=== PATIENT | male | born 1940 | race Caucasian/White ===

== ENCOUNTER 2017-02-19 07:24 | Inpatient (IN) ==
[2017-02-19] MEDS ORDERED: Ipratropium/Albuterol Neb 3 ML IH ONE (07:30)
--- NOTE | 2017-02-19 07:37 | Emergency Department Note ---
Disposition Clinical Impression: Bronchitis, Cardiac enzymes elevated, Renal insufficiency Disposition: Admitted As Inpatient Condition: Fair Forms: ED Satisfaction Letter Time of Disposition: 08:40 SOB HPI - General Chief Complaint: ED Shortness of Breath/Dyspnea Stated Complaint: Cough Time Seen by Provider: 02/19/17 07:30 Source: patient Mode of arrival: ambulatory Limitations: no limitations Nursing Notes Reviewed: Yes Vital Signs Reviewed: Yes - History of Present Illness 76-year-old male who comes in with cough congestion for the last several days. Was started on amoxicillin by his primary care provider. H symptoms seem to be getting worse. He has no history of lung problems. Denies chest pain. Pt Subjective Complaint: shortness of breath, cough Onset (ago): day(s) Context: recent illness Severity: moderate Improves with: nothing Worsens with: coughing Associated symptoms: Reports: fever, cough. Denies: chest pain Treatment prior to arrival: other (Oxacillin) Sputum production: Yes - Related Data Home Medications Medication Instructions Recorded Confirmed Acitretin [Soriatane] 25 mg PO 09/08/16 Amitriptyline [Elavil] 50 mg PO HS 09/08/16 01/19/17 Aspirin [Aspirin] 81 mg PO DAILY 09/08/16 01/19/17 Betamethasone/Propylene Glyc 30 ml TP ONCE 09/08/16 01/19/17 [Betamethasone Dp Aug 0.05% Lot] Clopidogrel [Plavix] 75 mg PO DAILY 09/08/16 01/19/17 Donepezil HCl [Aricept] 10 mg PO DAILY 09/08/16 01/19/17 Fenofibrate Nanocrystallized 145 mg PO TID 09/08/16 01/19/17 [Tricor] Insulin Regular U-500 [HumuLIN R 60 mm SQ TID 09/08/16 01/19/17 U-500] Loratadine [Claritin] 10 mg PO DAILY 09/08/16 01/19/17 Metoprolol [Lopressor] 50 mg PO BID 09/08/16 01/19/17 Mometasone Furoate [Nasonex] 17 gm NS BID 09/08/16 01/19/17 Ramipril [Altace] 10 mg PO BID 09/08/16 01/19/17 Tamsulosin [Flomax] 0.4 mg PO BID 09/08/16 01/19/17 hydroCHLOROthiazide 25 mg PO DAILY 09/08/16 01/19/17 [Hydrochlorothiazide] Multivitamin [Multivitamins] 1 each PO 01/19/17 Allergies Allergy/AdvReac Type Severity Reaction Status Date / Time codeine AdvReac Vomiting Verified 02/19/17 07:29 Icuzceb-Lyc-Iwh Reductase AdvReac Muscle Pain Verified 02/19/17 07:29 Inhibitor [Statins] Past Medical History - Past Medical History Medical history: Reports: arthritis, diabetes, hyperlipidemia, hypertension, valvular heart disease Surgical history: Reports: herniorrhaphy, thyroidectomy Psychiatric history: Reports: depression - Social History Smoking Status: Never smoker Smokeless Tobacco Status: No Alcohol use: Reports: none Drug use: Reports: none Physical Exam - General Limitations: no limitations General appearance: alert, in no apparent distress Course - Reevaluation(s) Reevaluation #1: Patient with cough and congestion. Chest x-ray show some opacities that were considered to be possibly edema however the BNP is normal. Patient does have a deep red treatment with some antibiotics he does have a slight elevation in his lactate is vital signs are normal with a normal heart rate and normal blood pressure we'll give him a liter fluid and repeat his lactate. Time: 08:39 - Consultations Consultation #1: Discussed with , admit. Time: 08:40 Vital Signs Temperature 99.0 F 02/19/17 07:25 Pulse Rate 98 02/19/17 07:25 Respiratory Rate 18 02/19/17 07:25 Blood Pressure 147/79 02/19/17 07:25 O2 Sat by Pulse Oximetry 95 02/19/17 07:25 Temperature 99.0 F 02/19/17 07:25 Pulse Rate 92 02/19/17 07:41 Respiratory Rate 20 02/19/17 07:41 Blood Pressure 166/84 02/19/17 07:41 O2 Sat by Pulse Oximetry 97 02/19/17 07:41 Oxygen Delivery Oxygen Delivery Room Air Shortness of Breath/Dyspnea - Lab Data Lab results reviewed: Yes I reviewed the patient's lab results. Result diagrams: 02/19/17 07:51 02/19/17 07:51 Lab Results 02/19/17 02/19/17 02/19/17 Range/Units 07:51 07:51 07:51 WBC 14.0 H (4.3-11.1) K/mcL RBC 4.36 (4.19-5.50) M/mcL Hgb 14.6 (12.9-16.9) g/dL Hct 41.6 (37.5-50.1) % MCV 95.4 (83.0-100.0) fL MCH 33.5 H (28.0-33.3) pg MCHC 35.1 (31.6-35.5) g/dL RDW 13.2 (11.5-14.5) % Plt Count 259 (140-400) K/mcL MPV 9.6 (9.4-12.4) fL Immature Gran % 0.4 (0-4) % Seg Neutrophils % 43.1 % Lymphocytes % 46.6 % Monocytes % 8.4 % Eosinophils % 1.0 % Basophils % 0.5 % Neutrophils # 6.0 (1.6-8.9) K/mcL Lymphocytes # 6.5 H (0.6-4.6) K/mcL Monocytes # 1.2 (0.0-1.3) K/mcL Eosinophils # 0.1 (0.0-0.6) K/mcL Basophils # 0.1 (0.0-0.2) K/mcL Sodium 136 (136-145) mEq/L Potassium 4.5 (3.5-4.5) mEq/L Chloride 100 (98-109) mEq/L Carbon Dioxide 22 (19-29) mEq/L BUN 23 (8-26) mg/dL Creatinine 1.54 H (0.72-1.25) mg/dL Est GFR ( Amer) 53 L (> 60) Est GFR (Non-Af Amer) 44 L (> 60) BUN/Creatinine Ratio 15 (6-26) Glucose 242 H (70-99) mg/dL Calculated Osmolality 294 (280-300) Lactic Acid 2.7 H (0.5-2.2) mmol/L Calcium 9.6 (8.6-10.8) mg/dL Troponin I (0-0.03) ng/mL B-Natriuretic Peptide (0-100) pg/mL 02/19/17 02/19/17 Range/Units 07:51 07:51 WBC (4.3-11.1) K/mcL RBC (4.19-5.50) M/mcL Hgb (12.9-16.9) g/dL Hct (37.5-50.1) % MCV (83.0-100.0) fL MCH (28.0-33.3) pg MCHC (31.6-35.5) g/dL RDW (11.5-14.5) % Plt Count (140-400) K/mcL MPV (9.4-12.4) fL Immature Gran % (0-4) % Seg Neutrophils % % Lymphocytes % % Monocytes % % Eosinophils % % Basophils % % Neutrophils # (1.6-8.9) K/mcL Lymphocytes # (0.6-4.6) K/mcL Monocytes # (0.0-1.3) K/mcL Eosinophils # (0.0-0.6) K/mcL Basophils # (0.0-0.2) K/mcL Sodium (136-145) mEq/L Potassium (3.5-4.5) mEq/L Chloride (98-109) mEq/L Carbon Dioxide (19-29) mEq/L BUN (8-26) mg/dL Creatinine (0.72-1.25) mg/dL Est GFR ( Amer) (> 60) Est GFR (Non-Af Amer) (> 60) BUN/Creatinine Ratio (6-26) Glucose (70-99) mg/dL Calculated Osmolality (280-300) Lactic Acid (0.5-2.2) mmol/L Calcium (8.6-10.8) mg/dL Troponin I 0.05 H* (0-0.03) ng/mL B-Natriuretic Peptide 24 (0-100) pg/mL - Radiology Data Radiology results reviewed: Yes I reviewed the patient's radiology results. Chest X-Ray 02/19/17 07:30 IMPRESSION: Slightly increased interstitial opacities, left greater than right, which may reflect mild edema. D/ / Rosie Bingham MD / Rosie Bingham MD Interpreting Provider: Rosie Bingham MD - EKG Data EKG attestation: Yes I reviewed and interpreted this EKG. EKG shows normal: Reports: sinus rhythm Rate: Reports: normal Gamaliel/QRS: Reports: left axis deviation, IVCD Heart block present: Reports: 1st Degree When compared to previous EKG there are: no significant changes (02/25/2014) Interpretation: Reports: no acute changes
[2017-02-19 08:05] LABS: Basophils # 0.1 K/mcL (0.0-0.2); Basophils % 0.5 %; Eosinophils # 0.1 K/mcL (0.0-0.6); Hematocrit 41.6 % (37.5-50.1); Hemoglobin 14.6 g/dL (12.9-16.9); Immature Granulocytes % 0.4 % (0-4); Lymphocytes # 6.5 K/mcL (0.6-4.6); Lymphocytes % 46.6 %; Mean Corpuscular HGB Conc 35.1 g/dL (31.6-35.5); Mean Corpuscular Hemoglobin 33.5 pg (28.0-33.3); Mean Corpuscular Volume 95.4 fL (83.0-100.0); Mean Platelet Volume 9.6 fL (9.4-12.4); Monocytes # 1.2 K/mcL (0.0-1.3); Monocytes % 8.4 %; Platelet Count 259 K/mcL (140-400); Red Blood Count 4.36 M/mcL (4.19-5.50); Red Cell Distribution Width 13.2 % (11.5-14.5); Segmented Neutrophils % 43.1 %
[2017-02-19 08:11] LABS: Calcium 9.6 mg/dL (8.6-10.8); Potassium 4.5 mEq/L (3.5-4.5)
[2017-02-19] MEDS ORDERED: Aspirin 81 MG TAB.CHEW PO STA (08:56)
[2017-02-19] MEDS ORDERED: Piperacillin/Tazobactam 3.375 GM in 0.9 % Sodium Chloride Mini Bag 100 ML IVPB ONE (10:00)
--- NOTE | 2017-02-19 11:41 | Internal Med History&Physical ---
Date of Encounter: 02/20/17 Time of Encounter: 11:35 Assessment and Plan (1) Bronchitis Current visit: Yes Status: Acute This is a possibility of early COPD. This is likely COPD exacerbation. Patient is a elevated white count, change in color of the sputum, or tachycardia , and respiratory rate is more than 18/m. Plan: Intravenous antibiotics, Intravenous steroids, Inhaled bronchodilators. Close monitoring of the respiratory status. (2) Cardiac enzymes elevated Current visit: Yes Status: Acute Patient's troponin is elevated. This can be multifactorial. At this point I would like to monitor troponin very closely. We will do serial troponins. Please note that patient's creatinine is also elevated. (3) Hypertension Current visit: Yes Status: Acute Patient's latest blood pressure 140/83. We will monitor patient's blood pressure very closely. Qualifiers: Hypertension type: unspecified Qualified Code(s): I10 - Essential (primary ) hypertension (4) Renal insufficiency Current visit: Yes Status: Acute Patient denies efficiency maybe due to the prerenal failure. We will be give patient gentle hydration. Please note that patient's lactic acid is also elevated. (5) Diabetes mellitus Current visit: Yes Status: Acute scsi DM management as per insulin order set. 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 if Aortic area is in critical stenotic evel then will call cardiology. Qualifiers: Cardiac valve disease etiology: etiology unspecified Qualified Code(s): I35.0 - Nonrheumatic aortic (valve) stenosis Internal Medicine - H&P: HPI Chief complaint: Shortness of breath Admitted From: Emergency Dept Plans for Post Hospital Care: Home History of present illness: Primary care:Practitioner Willow Singer Brief past medical history: Diabetes, hypertension, hyperlipidemia, valvular heart disease (aortic stenosis: Wall area 1.25 cm), COPD, arthritis, History of present medical illness: Patient was experiencing worsening shortness of breath along with cough and expectoration. Patient noted that the color of the sputum has changed. Patient also noted that the frequency of cough is getting worse. Patient noted that it was very difficult for him to lay down flat. Patient denies chest pain, nausea, vomiting, abdominal pain, dysuria, diarrhea and dizziness. For his worsening shortness of breath and cough patient decided to come to emergency room for further evaluation. Workup in the emergency room: Patient was evaluated in the emergency room. Basic labs were drawn. Neurological examination of the chest was suggestive of a infiltrative pattern. The left lower lobe of the lung has what infiltrates compared to the right. Patient has a elevated white blood cell count and patient has a possibility of acute kidney injury. It was noted that patient's troponin was elevated. Reason for admission: Likely COPD exacerbation with demand ischemia and a possibility of acute kidney injury. Patient has elevated lactic acid Family history: Noncontributory Past Med Surg Social Fam HX - Past Medical History Medical history: arthritis, diabetes, hyperlipidemia, hypertension, valvular heart disease Psychiatric history: depression - Past Surgical History Surgical History: herniorrhaphy, thyroidectomy - Social History Smoking Status: Never smoker Smokeless Tobacco Status: No Alcohol use: none Drug use: none - Family History Mother Hx Family Cardiac Disorders: Yes Hx Family Respiratory Disorders: No Hx Family Cancer: Yes (breast cancer) Hx Family GI Disorders: No Hx Family Endocrine Disorder: Yes Hx Family Neuromuscular Disorders: No Hx Family Neurologic Disorders: No Hx Family HEENT Disorders: No Hx Family Autoimmune Disorders: No Internal Medicine - H&P: Meds Acitretin [Soriatane] 25 mg PO DAILY 09/08/16 [History] Aspirin [Aspirin] 81 mg PO DAILY 09/08/16 [History] Betamethasone/Propylene Glyc [Betamethasone Dp Aug 0.05% Lot] 1 appl TP DAILY [History] Clopidogrel [Plavix] 75 mg PO DAILY 09/08/16 [History] Donepezil HCl [Aricept] 10 mg PO DAILY 09/08/16 [History] Fenofibrate Nanocrystallized [Tricor] 145 mg PO DAILY 09/08/16 [History] Insulin Regular U-500 [HumuLIN R U-500] 80 mm SQ TID 09/08/16 [History] Loratadine [Claritin] 10 mg PO DAILY 09/08/16 [History] Metoprolol [Lopressor] 50 mg PO BID 09/08/16 [History] Mometasone Furoate [Nasonex] 17 gm NS BID 09/08/16 [History] Ramipril [Altace] 10 mg PO BID 09/08/16 [History] Tamsulosin [Flomax] 0.4 mg PO BID 09/08/16 [History] hydroCHLOROthiazide [Hydrochlorothiazide] 25 mg PO DAILY 09/08/16 [History] Multivitamin [Multivitamins] 1 tab PO DAILY 01/19/17 [History] Amoxicillin 875 mg PO BID 02/19/17 [History] Furosemide [Lasix] 40 mg PO DAILY 02/19/17 [History] HYDROcodone/Acet 5/325 mg [Bagley 5-325 mg] 1 tab PO BID PRN 02/19/17 [History] Levothyroxine Sodium [Levoxyl] 200 mcg PO DAILY 02/19/17 [History] Meclizine HCl [Verticalm] 25 mg PO DAILY PRN 02/19/17 [History] Montelukast [Singulair] 10 mg PO DAILY 02/19/17 [History] 3 Allergy/AdvReac Type Severity Reaction Status Date / Time codeine AdvReac Vomiting Verified 02/19/17 07:29 Pxwoaat-Msg-Wbd Reductase AdvReac Muscle Pain Verified 02/19/17 07:29 Inhibitor [Statins] All Systems PM: A 10-system review of systems was performed and is negative for pertinent findings except as documented above in the HPI. - Constitutional Constitutional: no chills, no fever(s), no night sweats - EENT Eyes: no change in vision, no discharge, no pain, no photophobia Ears: no ear discharge, no ear pain, no tinnitus Nose, mouth and throat: no dysphagia, no nasal discharge, no neck pain, no sore throat - Cardiovascular Cardiovascular ROS IM: diaphoresis, dyspnea, lightheadedness, palpitations, no chest pain, no syncope - Respiratory Respiratory: cough, dyspnea, wheezing, excessive phlegm production, change in phlegm color - Gastrointestinal Gastrointestinal: no abdominal pain, no diarrhea, no hematemesis, no hematochezia, no melena, no nausea, no vomiting - Musculoskeletal Musculoskeletal ROS IM: no numbness, no tingling - Integumentary Integumentary IM: no rash, no unusual bruising - Neurological Neurological ROS: no confusion, no convulsions, no focal weakness, no numbness, no tingling, no tremor(s) - Hematologic/Lymphatic Hematologic/Lymphatic: no easy bruising - Constitutional Vitals: Temp Pulse Resp BP Pulse Ox 99.2 F 79 18 140/83 94 02/19/17 10:02 02/19/17 10:02 02/19/17 10:02 02/19/17 10:02 02/19/17 10:02 General appearance: Present: A&O X 3, pleasant, no acute distress, answers questions appropriately - Head Head exam: Present: atraumatic, normocephalic - Eye Eye exam: Present: PERRL, conjuntiva pink, sclera anicteric Pupils: Present: PERRL - Neck Neck exam general surgery: Present: supple, trachea midline. Absent: lymphadenopathy - Respiratory Respiratory exam: Present: CTAB. Absent: accessory muscle use, rales, rhonchi, wheezes - Cardiovascular Cardiovascular exam: Present: RRR, +S1, +S2. Absent: diastolic murmur, gallop, rubs, systolic murmur - GI/Abdominal GI/Abdominal exam: Present: normal bowel sounds, soft, no peritoneal signs. Absent: distended, tenderness - Extremities Exam Extremities exam: Present: warm, radial pulses palpable and symmetrical. Absent : calf tenderness, cyanotic, pedal edema - Neurological Exam Neurological exam: Present: CN II-XII intact, oriented X3, no focal deficits. Absent: pronater drift, facial droop, speech deficit - Skin Skin exam: Present: dry, intact Internal Med - H&P Results - Labs CBC & Chem 7: 02/20/17 00:56 02/20/17 00:56
[2017-02-19] MEDS ORDERED: Naloxone 0.4 MG/ML INJ IVP PRN (12:20)
[2017-02-19] MEDS: Azithromycin 500 MG in D5% in Water 250 ML IVPB SCH (16:05)
[2017-02-19] MEDS: *HR* HYDROcodone/Acet 5/325 mg TABLET PO PRN (16:47)
[2017-02-19] MEDS: cefTRIAXone 1,000 MG in Water for inj. (sterile) 10 ML IVP SCH (17:30)
[2017-02-19] MEDS: Lisinopril 20 MG TABLET PO SCH (21:06)
[2017-02-19] MEDS ORDERED: Dextrose Gel 15 GM PO PRN ×2 (21:34)
[2017-02-19] MEDS ORDERED: *HR* Dextrose 50 % in Water (Syg) 50 ML SYRINGE IVP PRN (21:34)
[2017-02-19] MEDS ORDERED: D5% in Water 1,000 ML IVC PRN (21:34)
[2017-02-19] MEDS: Insulin LISPRO 300 UNITS/3 ML VIAL SQ SCH (22:24)
[2017-02-20 01:25] LABS: Basophils # 0.1 K/mcL (0.0-0.2); Basophils % 0.6 %; Eosinophils # 0.2 K/mcL (0.0-0.6); Eosinophils % 1.9 %; Hematocrit 41.7 % (37.5-50.1); Hemoglobin 14.4 g/dL (12.9-16.9); Immature Granulocytes % 0.4 % (0-4); Lymphocytes # 5.2 K/mcL (0.6-4.6); Lymphocytes % 47.4 %; Mean Corpuscular HGB Conc 34.5 g/dL (31.6-35.5); Mean Corpuscular Volume 95.6 fL (83.0-100.0); Mean Platelet Volume 9.9 fL (9.4-12.4); Monocytes # 1.3 K/mcL (0.0-1.3); Monocytes % 11.8 %; Neutrophils # 4.1 K/mcL (1.6-8.9); Platelet Count 238 K/mcL (140-400); Red Blood Count 4.36 M/mcL (4.19-5.50); Red Cell Distribution Width 13.2 % (11.5-14.5); Segmented Neutrophils % 37.9 %
[2017-02-20 01:35] LABS: Albumin 3.6 g/dL (3.5-5.0); Albumin/Globulin Ratio 1.1 (1.1-2.2); Bilirubin,Total 0.4 mg/dL (0.2-1.2); Calcium 9.8 mg/dL (8.6-10.8); Magnesium 1.9 mg/dL (1.6-2.6); Phosphorous 3.4 mg/dL (2.3-4.7); Potassium 4.4 mEq/L (3.5-4.5)
[2017-02-20 01:36] LABS: Chol/HDL Ratio 8.5 (0-4.9); Globulin 3.4 g/dL (2.4-3.5)
[2017-02-20 01:58] LABS: INR 1.1; Prothrombin Time 12.4 Seconds (9.4-12.1)
[2017-02-20 02:00] LABS: Activated Partial Thrombo Time 27.9 Seconds (26.0-36.0)
[2017-02-20] MEDS ORDERED: Benzonatate 100 MG CAPSULE PO PRN (02:18)
[2017-02-20] MEDS: Lisinopril 20 MG TABLET PO SCH (08:55)
[2017-02-20] MEDS: Fenofibrate 54 MG TABLET PO SCH (08:55)
[2017-02-20] MEDS: Loratadine 10 MG TABLET PO SCH (08:55)
[2017-02-20] MEDS: Aspirin 81 MG TAB.CHEW PO SCH (08:56)
[2017-02-20] MEDS: Insulin LISPRO 300 UNITS/3 ML VIAL SQ SCH ×4 (08:57→22:08)
[2017-02-20] MEDS ORDERED: hydroCHLOROthiazide 25 MG TABLET PO SCH (09:00)
[2017-02-20] MEDS ORDERED: Furosemide 40 MG TABLET PO SCH (09:00)
[2017-02-20] MEDS ORDERED: ACITRETIN 25 MG PO SCH (09:00)
[2017-02-20] MEDS: *HR* HYDROcodone/Acet 5/325 mg TABLET PO PRN ×2 (09:34→21:58)
[2017-02-20] MEDS: Azithromycin 500 MG in D5% in Water 250 ML IVPB SCH (14:58)
[2017-02-20] MEDS: Ipratropium/Albuterol Neb 3 ML IH SCH ×2 (15:42→20:21)
[2017-02-20] MEDS: Acetylcysteine 10% 2 ML INHSOL IH SCH ×2 (15:43→20:23)
--- NOTE | 2017-02-20 18:05 | Internal Med Progress Note ---
Date of Encounter: 02/20/17 Time of Encounter: 18:04 - Assessment and plan (1) Bronchitis Current Visit: Yes Status: Acute Assessment and plan: Cough could be caused by lower respiratory tract infection, post nasal drip, GERD, others. He has no signs/symptoms of asthma/COPD. He does not seem fluid overloaded though he does have mild edema on chest x-ray - will treat with rocephin/azithromycin - Mucomyst, Duo Neb - Respiratory cultures: sputum, urine antigens, procalcitonin - CT chest without contrast (CKD). (2) Dyspnea on exertion Current Visit: Yes Status: Acute Assessment and plan: May be related to bronchitis as patient suggests, however this could be cardiac in nature as he does have severe seen on echo and moderate LV diastolic dysfunction. He insists that BARBOSA is from infection, not cardiac. He has been tried on amoxicillin as outpatient. He has no tobacco history, he has no history of asthma, denies any cardiac history though he does have documented valvular heart disease. - Treat for lower respiratory tract infection; Azithro/Rocephin - CT chest - I will suggest to patient that we consult Cardiology in AM. If he has not seen a [employer] Lead Developer in the past for , he should be seen inpatient or outpatient. (3) Stage 3 chronic kidney disease Current Visit: Yes Status: Acute Assessment and plan: Reviewing patient's prior labs, he is at baseline currently. (4) Severe aortic stenosis Current Visit: Yes Status: Acute Assessment and plan: Could be the cause of progressive BARBOSA that he complains of. I will suggest to patient that we consult Cardiology in AM if his symptoms do not improve with respiratory therapies. Patient denies any cardiac history but he has documented history of valvular heart disease and most likely has seen a [employer] Lead Developer. Will attempt to obtain records. (5) Cardiac enzymes elevated Current Visit: Yes Status: Acute Assessment and plan: Likely due to CKD as patient's troponin levels appear to fluctuate between 0.04- 0.05. He does not complain of any chest pain. (6) Diabetes mellitus Current Visit: Yes Status: Acute Qualifiers: Diabetes mellitus type: type 2 Diabetes mellitus complication status: with unspecified complications Diabetes mellitus fdc insulin use: unspecified fdc insulin use status Qualified Code(s): E11.8 - Type 2 diabetes mellitus with unspecified complications (7) Hypertension Current Visit: Yes Status: Acute Assessment and plan: BP control should not be aggressive given his , should keep BP close to baseline. Qualifiers: Hypertension type: unspecified Qualified Code(s): I10 - Essential (primary ) hypertension (8) Hyperlipidemia Current Visit: Yes Status: Acute Assessment and plan: On Tricor. Has documented allergy to statins. Qualifiers: Hyperlipidemia type: mixed hyperlipidemia Qualified Code(s): E78.2 - Mixed hyperlipidemia - Subjective Interval history: States he is still having coughing fits with difficulty breathing with fits of cough. Noted orthopnea in the ED but denied this to me. He denies chest pain, n/v, diaphoresis, fevers/chills, PND, LE edema. Admits dyspnea has been progressing gradually. Was tried on Amaxicillin without resolve. . - Constitutional Vitals: Temp Pulse Resp BP Pulse Ox 98.4 F 66 24 117/67 98 02/20/17 15:27 02/20/17 15:27 02/20/17 15:43 02/20/17 15:27 02/20/17 15:43 General appearance: Present: A&O X 3, pleasant, no acute distress, answers questions appropriately Exam: - Constitutional Constitutional: no chills, no fever(s), no night sweats - EENT Eyes: no change in vision, no discharge, no pain, no photophobia Ears: no ear discharge, no ear pain, no tinnitus Nose, mouth and throat: no dysphagia, no nasal discharge, no neck pain, no sore throat - Cardiovascular Cardiovascular ROS IM: diaphoresis, dyspnea, lightheadedness, palpitations, no chest pain, no syncope - Respiratory Respiratory: cough, dyspnea, wheezing, excessive phlegm production, change in phlegm color - Gastrointestinal Gastrointestinal: no abdominal pain, no diarrhea, no hematemesis, no hematochezia, no melena, no nausea, no vomiting - Musculoskeletal Musculoskeletal ROS IM: no numbness, no tingling - Integumentary Integumentary IM: no rash, no unusual bruising - Neurological Neurological ROS: no confusion, no convulsions, no focal weakness, no numbness, no tingling, no tremor(s) - Hematologic/Lymphatic Hematologic/Lymphatic: no easy bruising Internal Medicine: Result - Labs CBC & Chem 7: 02/20/17 00:56 02/20/17 00:56 Labs: Short CBC 02/20/17 Range/Units 00:56 WBC 10.9 (4.3-11.1) K/mcL Hgb 14.4 (12.9-16.9) g/dL Hct 41.7 (37.5-50.1) % Plt Count 238 (140-400) K/mcL Neutrophils # 4.1 (1.6-8.9) K/mcL BMP 02/20/17 00:56 Sodium 136 Potassium 4.4 Chloride 100 Carbon Dioxide 27 BUN 29 H Creatinine 1.68 H Glucose 215 H Calcium 9.8 Cardiac Enzymes 02/19/17 02/20/17 Range/Units 19:03 00:56 Troponin I 0.05 H* 0.04 H* (0-0.03) ng/mL Liver Function 02/20/17 Range/Units 00:56 Total Bilirubin 0.4 (0.2-1.2) mg/dL AST 34 (5-34) Units/L ALT 36 (0-55) Units/L Alkaline Phosphatase 38 (38-126) Units/L Albumin 3.6 (3.5-5.0) g/dL - ABG Interpretation ABG results: PT/INR, D-dimer PT 12.4 Seconds (9.4-12.1) H 02/20/17 00:56 - Impressions Impressions Echocardiogram 02/19/17 12:25 Impressions: Technically adequate exam. Normal sinus rhythm. LVEF 65%. Moderate left ventricular diastolic dysfunction. Mild concentric left ventricular hypertrophy. Severe aortic stenosis. Peak and mean gradients are 367 mmHg, respectively. Trace aortic regurgitation. Mildly dilated left atrium. Trileaflet aortic valve. Trace tricuspid regurgitation. Left Ventricular Wall Motion: Rest Echo Findings The mid inferior lateral wall was akinetic. The mid anterior lateral and basal anterior lateral riggs were not visualized. All other wall segments showed normal motion. Findings: Study Quality * Technically adequate exam. ECG Findings * Normal sinus rhythm. Left Ventricle * Mild concentric left ventricular hypertrophy. * Moderate left ventricular diastolic dysfunction. * There is no LV thrombus. * LVEF 65%. Right Ventricle * Normal right ventricular structure and function. Left Atrium * Mildly dilated left atrium. Right Atrium * Normal right atrial size. Interatrial Septum * No evidence of PFO by color Doppler. Aortic Valve * Trileaflet aortic valve. * Mildly calcified aortic valve leaflets. * Mildly sclerotic aortic valve leaflets. * Mildly thickened aortic valve leaflets. * Trace aortic regurgitation. * Severe aortic stenosis. * Peak and mean gradients are 367 mmHg, respectively. Mitral Valve * Normal mitral valve structure and function. Tricuspid Valve * Normal tricuspid valve structure. * Trace tricuspid regurgitation. Pulmonic Valve * Pulmonic valve is not well visualized. Aorta * Normally sized aortic root. Pericardium * The pericardium appears normal. Chest CT 02/20/17 13:07 IMPRESSION: 1. No acute process in the chest. 2. Dense coronary artery atherosclerotic vascular calcifications. D/ / Dennis Lpoez MD / Dennis Lopez MD Interpreting Provider: Dennis Lopez MD Consult Discharge Plan - Plan Referrals: Willow Singer CNP [Primary Care Provider] -
[2017-02-20] MEDS: cefTRIAXone 1,000 MG in Water for inj. (sterile) 10 ML IVP SCH (18:57)
[2017-02-21] MEDS: Ipratropium/Albuterol Neb 3 ML IH SCH ×3 (00:42→07:23)
[2017-02-21] MEDS: Acetylcysteine 10% 2 ML INHSOL IH SCH ×3 (00:43→07:24)
[2017-02-21 04:26] LABS: Basophils # 0.1 K/mcL (0.0-0.2); Basophils % 0.5 %; Eosinophils # 0.3 K/mcL (0.0-0.6); Eosinophils % 2.1 %; Hematocrit 40.7 % (37.5-50.1); Hemoglobin 13.9 g/dL (12.9-16.9); Immature Granulocytes % 0.3 % (0-4); Lymphocytes # 7.4 K/mcL (0.6-4.6); Lymphocytes % 61.4 %; Mean Corpuscular HGB Conc 34.2 g/dL (31.6-35.5); Mean Corpuscular Hemoglobin 33.2 pg (28.0-33.3); Mean Corpuscular Volume 97.1 fL (83.0-100.0); Monocytes % 8.4 %; Neutrophils # 3.3 K/mcL (1.6-8.9); Platelet Count 254 K/mcL (140-400); Red Blood Count 4.19 M/mcL (4.19-5.50); Red Cell Distribution Width 13.2 % (11.5-14.5); Segmented Neutrophils % 27.3 %
[2017-02-21 05:26] LABS: Potassium 4.4 mEq/L (3.5-4.5)
[2017-02-21 05:27] LABS: Calcium 9.6 mg/dL (8.6-10.8)
[2017-02-21] MEDS: Saline Nasal Spray 44 ML BOTTLE NS PRN ×3 (07:05→14:24)
--- NOTE | 2017-02-21 08:55 | Internal Med Progress Note ---
Date of Encounter: 02/21/17 Time of Encounter: 08:50 - Assessment and plan (1) Bronchitis Current Visit: Yes Status: Acute Assessment and plan: The treating for bronchitis with Rocephin and azithromycin, was on amoxicillin as outpatient without resolve. Chronic cough not likely related to JAG inhibitor if patient has been on this medication for a while. Patient denies any heartburn symptoms, though it might be worth it to have a trial of H2 nu. Could also possibly be postnasal drip, as he does complain of rhinorrhea and occasionally sinus congestion. We will try Pepcid and Flonase. We will discontinue medications that have not been effective. Does not have any wheezing, nor history of any asthma/COPD. But will consider corticosteroid therapy if he does develop symptoms. He denies chest pain, n/v, diaphoresis, fevers/chills, PND, LE edema. Admits dyspnea has been progressing gradually. Was tried on Amaxicillin without resolve. (2) Dyspnea on exertion Current Visit: Yes Status: Acute Assessment and plan: It could be related to bronchitis as patient suggests, however this could be cardiac in nature as he does have severe seen on echo and moderate LV diastolic dysfunction, as seen on echocardiogram 2 days ago. He states his last cardiology follow-up was 4 months ago. Wells Score suggests low likelihood of PE. (3) Mxniu-pz-wwesfgc kidney injury Current Visit: Yes Status: Acute Assessment and plan: states he sees Dr. Smith in the past for declining renal function. Patient home medications include Lasix, hydrochlorothiazide, lisinopril. We will hold these medications today. Might need judicious IV fluid hydration. We will grab renal ultrasound, FEURea, urinalysis with micro, and consult Nephrology. Qualifiers: Acute renal failure type: unspecified Chronic kidney disease stage: stage 3 (moderate) Qualified Code(s): N17.9 - Acute kidney failure, unspecified; N18.3 - Chronic kidney disease, stage 3 (moderate); N18.3 - Chronic kidney disease, stage 3 (moderate) (4) Stage 3 chronic kidney disease Current Visit: Yes Status: Acute Assessment and plan: Was at baseline yesterday, usually runs 1.4-1.6. Today was elevated, will get nephrology consult. (5) Severe aortic stenosis Current Visit: Yes Status: Acute Assessment and plan: Could be the cause of progressive BARBOSA that he complains of. Cardiology has been consulted. (6) Hypertension Current Visit: Yes Status: Acute Assessment and plan: BP control should not be aggressive given his , should keep BP close to baseline. Currently hypotensive, but we are holding lisinopril and hydrochlorothiazide. He may need hydralazine as a when necessary. Appreciate cardiology input on blood pressure medication given current status. Qualifiers: Hypertension type: unspecified Qualified Code(s): I10 - Essential (primary ) hypertension (7) Cardiac enzymes elevated Current Visit: Yes Status: Acute Assessment and plan: Likely due to CKD as patient's troponin levels appear to fluctuate between 0.04- 0.05. He does not complain of any chest pain. (8) Diabetes mellitus Current Visit: Yes Status: Acute Assessment and plan: We will add Levemir 10 units as basal insulin. He may need more requirements as he is on U500 at home. Continue diabetic diet and sliding scale Qualifiers: Diabetes mellitus type: type 2 Diabetes mellitus complication status: with unspecified complications Diabetes mellitus jail insulin use: unspecified termite treater insulin use status Qualified Code(s): E11.8 - Type 2 diabetes mellitus with unspecified complications (9) Hyperlipidemia Current Visit: Yes Status: Acute Assessment and plan: On Tricor. Has documented allergy to statins. Qualifiers: Hyperlipidemia type: mixed hyperlipidemia Qualified Code(s): E78.2 - Mixed hyperlipidemia - Subjective Interval history: Thing episodes did not improve with DuoNeb's, or Mucomyst. Denies chest pain, fevers/chills, n/v. - Constitutional Vitals: Temp Pulse Resp BP Pulse Ox 97.9 F 59 16 82/50 93 02/21/17 07:18 02/21/17 07:18 02/21/17 07:24 02/21/17 07:18 02/21/17 07:24 General appearance: Present: A&O X 3, pleasant, no acute distress, answers questions appropriately Internal Medicine: Result - Labs CBC & Chem 7: 02/21/17 03:19 02/21/17 04:55 Labs: Short CBC 02/21/17 Range/Units 03:19 WBC 12.0 H (4.3-11.1) K/mcL Hgb 13.9 (12.9-16.9) g/dL Hct 40.7 (37.5-50.1) % Plt Count 254 (140-400) K/mcL Neutrophils # 3.3 (1.6-8.9) K/mcL BMP 02/21/17 04:55 Sodium 135 L Potassium 4.4 Chloride 101 Carbon Dioxide 24 BUN 48 H D Creatinine 2.29 H Glucose 241 H Calcium 9.6 - ABG Interpretation ABG results: PT/INR, D-dimer PT 12.4 Seconds (9.4-12.1) H 02/20/17 00:56 - Impressions Impressions Chest CT 02/20/17 13:07 IMPRESSION: 1. No acute process in the chest. 2. Dense coronary artery atherosclerotic vascular calcifications. D/ / Dennis Lopez MD / Dennis Lopez MD Interpreting Provider: Dennis Lopez MD - VTE Documentation of Mechanical Device: Graduated compression elastic hosiery Consult Discharge Plan - Plan Referrals: Willow Singer FINGER COBBLER [Primary Care Provider] -
[2017-02-21] MEDS ORDERED: 0.9 % Sodium Chloride 500 ML IVC SCH ×2 (09:15→11:23)
[2017-02-21] MEDS: Insulin LISPRO 300 UNITS/3 ML VIAL SQ SCH ×4 (09:29→22:31)
[2017-02-21] MEDS: Fenofibrate 54 MG TABLET PO SCH (09:30)
[2017-02-21] MEDS: Loratadine 10 MG TABLET PO SCH (09:30)
[2017-02-21] MEDS: Aspirin 81 MG TAB.CHEW PO SCH (09:30)
[2017-02-21] MEDS: *HR* HYDROcodone/Acet 5/325 mg TABLET PO PRN ×2 (09:39→22:53)
--- NOTE | 2017-02-21 11:26 | Nephrology Consult Note ---
Date of Encounter: 02/21/17 Time of Encounter: 11:24 Assessment and Plan (1) Bronchitis Current Visit: Yes Status: Acute (2) Diabetes mellitus Current Visit: Yes Status: Acute Qualifiers: Diabetes mellitus type: type 2 Diabetes mellitus complication status: with unspecified complications Diabetes mellitus terminal operator insulin use: unspecified terminal operator insulin use status Qualified Code(s): E11.8 - Type 2 diabetes mellitus with unspecified complications (3) Hypertension Current Visit: Yes Status: Acute Qualifiers: Hypertension type: unspecified Qualified Code(s): I10 - Essential (primary ) hypertension (4) Severe aortic stenosis Current Visit: Yes Status: Acute (5) Stage 3 chronic kidney disease Current Visit: Yes Status: Acute (6) Zdbim-sx-hpnbktv kidney injury Current Visit: Yes Status: Acute Qualifiers: Acute renal failure type: unspecified Chronic kidney disease stage: stage 3 (moderate) Qualified Code(s): N17.9 - Acute kidney failure, unspecified; N18.3 - Chronic kidney disease, stage 3 (moderate); N18.3 - Chronic kidney disease, stage 3 (moderate) History of Present Illness - Reason for Consult Consult date: 02/21/17 Acute Kidney Injury - Chief Complaint ADRIANA on CKD Past Med Surg Social Fam HX - Past Medical History Medical history: arthritis, diabetes, hyperlipidemia, hypertension, valvular heart disease Psychiatric history: depression - Past Surgical History Surgical History: herniorrhaphy, thyroidectomy - Social History Smoking Status: Never smoker Smokeless Tobacco Status: No Alcohol use: none Drug use: none - Family History Mother Hx Family Cardiac Disorders: Yes Hx Family Respiratory Disorders: No Hx Family Cancer: Yes (breast cancer) Hx Family GI Disorders: No Hx Family Endocrine Disorder: Yes Hx Family Neuromuscular Disorders: No Hx Family Neurologic Disorders: No Hx Family HEENT Disorders: No Hx Family Autoimmune Disorders: No Medications and Allergies Acitretin [Soriatane] 25 mg PO DAILY 09/08/16 [History] Aspirin [Aspirin] 81 mg PO DAILY 09/08/16 [History] Betamethasone/Propylene Glyc [Betamethasone Dp Aug 0.05% Lot] 1 appl TP DAILY [History] Clopidogrel [Plavix] 75 mg PO DAILY 09/08/16 [History] Donepezil HCl [Aricept] 10 mg PO DAILY 09/08/16 [History] Fenofibrate Nanocrystallized [Tricor] 145 mg PO DAILY 09/08/16 [History] Insulin Regular U-500 [HumuLIN R U-500] 80 mm SQ TID 09/08/16 [History] Loratadine [Claritin] 10 mg PO DAILY 09/08/16 [History] Metoprolol [Lopressor] 50 mg PO BID 09/08/16 [History] Mometasone Furoate [Nasonex] 17 gm NS BID 09/08/16 [History] Ramipril [Altace] 10 mg PO BID 09/08/16 [History] Tamsulosin [Flomax] 0.4 mg PO BID 09/08/16 [History] hydroCHLOROthiazide [Hydrochlorothiazide] 25 mg PO DAILY 09/08/16 [History] Multivitamin [Multivitamins] 1 tab PO DAILY 01/19/17 [History] Amoxicillin 875 mg PO BID 02/19/17 [History] Furosemide [Lasix] 40 mg PO DAILY 02/19/17 [History] HYDROcodone/Acet 5/325 mg [[place] 5-325 mg] 1 tab PO BID PRN 02/19/17 [History] Levothyroxine Sodium [Levoxyl] 200 mcg PO DAILY 02/19/17 [History] Meclizine HCl [Verticalm] 25 mg PO DAILY PRN 02/19/17 [History] Montelukast [Singulair] 10 mg PO DAILY 02/19/17 [History] 3 Allergy/AdvReac Type Severity Reaction Status Date / Time codeine AdvReac Vomiting Verified 02/19/17 07:29 Qaptxtc-Tjx-Oqi Reductase AdvReac Muscle Pain Verified 02/19/17 07:29 Inhibitor [Statins] Exam - Vital Signs Vital signs: Initial Vital Signs Temp Pulse Resp BP Pulse Ox 99.0 F 98 18 147/79 95 02/19/17 07:25 02/19/17 07:25 02/19/17 07:25 02/19/17 07:25 02/19/17 07:25 Vital Signs - Last 8 Hours Temp Pulse Resp BP Pulse Ox 02/21/17 07:24 16 93 02/21/17 07:18 97.9 F 59 16 82/50 93 02/21/17 04:46 16 94 02/21/17 04:02 97.6 F 59 18 104/67 94 Intake and Output 02/20/17 02/21/17 02/21/17 23:59 07:59 15:59 Intake Total 450 / 450 Output Total 400 / 400 Balance 50 / 50 Intake: Oral 450 / 450 Output: Urine 400 / 400 Other: Weight 108.363 kg Blood Glucose* 307 277 Patient Weight 02/21/17 23:59 Weight 108.363 kg - General Appearance General appearance: well-developed, well-nourished EENT: ATNC Neck: supple Additional Comments: Rare basilar crackles that improve with repeat inspiration. Gastrointestinal: normoactive bowel sounds Integumentary: no rash, warm and dry Neurologic: alert and oriented x3 Musculoskeletal: no cyanosis Psychiatric: mood/affect appropriate Results - Lab Results 02/21/17 03:19 02/21/17 04:55 Most recent lab results Calcium 9.6 mg/dL (8.6-10.8) 02/21/17 04:55 Phosphorus 3.5 mg/dL (2.3-4.7) 02/20/17 10:43 Magnesium 1.9 mg/dL (1.6-2.6) 02/20/17 00:56 Consult Discharge Plan - Plan Referrals: Willow Singer CNP [Primary Care Provider] - (web request sent on 02/21/17)
--- NOTE | 2017-02-21 11:32 | Electrocardiograph Report ---
[place] [id number] Test Date: 2017-02-19 Pat Name: Olayinka Garrido Department: [id number] Room: 2A13 Gender: M Audio Visual Engineer: AM : 1940 Requested By: Dileep Jurado Order Number: [id number] Reading MD: Cecil Hart Measurements Intervals [place] Rate: 94 P: 8 MS: 219 QRS: -42 QRSD: 121 T: 112 QT: 380 QTc: 432 Interpretive Statements SINUS RHYTHM WITH FIRST DEGREE AV BLOCK MARKED LEFT AXIS DEVIATION LEFT VENTRICULAR HYPERTROPHY AND ST-T CHANGE POSSIBLE ANTEROSEPTAL MYOCARDIAL INFARCTION Electronically Signed On 02-21-2017 11:31:07 EST by Cecil Hart
[2017-02-21] MEDS: Azithromycin 500 MG in D5% in Water 250 ML IVPB SCH (12:16)
--- NOTE | 2017-02-21 13:47 | Cardiology Consult Note ---
<SophyDonaldo pretty Nathalie - Last Filed: 02/21/17 15:17> Date of Encounter: 02/21/17 Time of Encounter: 13:42 Assessment and Plan (1) Severe aortic stenosis Current Visit: Yes Status: Acute Previously known moderate , now progressed to severe. MG 35mmgHg, Peak gradient 54mmHg, valve area 0.86cm2, mean velocity 2.78 m/sec, peak velocity 3.67 m/sec. EF remains preserved. Pt admits to worsening dyspnea, but most bothersome symptom is cough over the past week--suspect secondary to bronchitis and not his . EKG with reciprocal LVH changes. LHC 02/25/14: successful PTCA/IRVIN to mid to distal LAD d/t severe ISR. Pt denies chest pain. Given severe , repeat ischemic eval will be warranted, but is not urgent. Pt currently has ADRIANA on CKD stage III, creatinine 2.29. Do no recommend LHC currently given risk of contrast induced nephropathy. Recommend outpt follow-up and once renal function is back to baseline, consider outpt diagnostic LHC then referral to valve replacement. Pt agrees to plan. Pt denies syncope. I will discuss all the above with Dr. Beckwith and make changes to plan accordingly. (2) Elevated troponin Current Visit: Yes Status: Acute Troponins 0.05, 0.04, 0.05, 0.04--flat and adynamic in setting of bronchitis and ADRIANA on CKD. Borderline. Nondiagnostic for ACS, secondary to demand ischemia. EF preserved on echo. Severe as above. (3) CAD (coronary artery disease) Current Visit: Yes Status: Acute LHC 02/25/14: successful PTCA/IRVIN to mid to distal LAD d/t severe ISR. Intolerant to statins. Continue ASA, Plavix, BB. Qualifiers: Coronary Disease-Associated Artery/Lesion type: [place] artery [place] vs. transplanted heart: [place] heart Associated angina: without angina Qualified Code(s): I25.10 - Atherosclerotic heart disease of [place] coronary artery without angina pectoris Discussion w patient/family: The assessment and plan as outlined above was discussed with the patient and/or family members who expressed understanding and agreement. All questions were answered. Thank you for involving us in the care of your patient. Please call with any questions. I will discuss all the above with Dr. Beckwith and make changes as necessary. History of Present Illness Consult date: 02/21/17 Requesting physician: Puneet Byers Consult reason: Severe Chief complaint: dyspnea, cough History of present illness: Mr. Garrido is a 76 year old male with PMH significant for CAD s/p PCI, HTN, CKD- 3, DMII, and JESSICA. He is unable to tolerate CPAP d/t deviated septum. Pt presented to ED due to experiencing worsening shortness of breath along with cough and expectoration. Patient noted that the color of the sputum has changed. He denies chest pain. Pt is being treated for bronchitis. Found to have borderline troponins--0.04, 0.05, 0.04, 0.05 in setting of ADRIANA on CKD. Creatinine today 2.29. Echo obtained. EF preserved, moderate LVDD, but found to have progression of , now severe (previously moderate). MG 35mmgHg, Peak gradient 54mmHg, valve area 0.86cm2, mean velocity 2.78 m/sec, peak velocity 3.67 m/sec. Prior CV testing: TTE 07/07/16: LVEF 55%, mild LVDD, normal RV size and function, moderate (PV 2.7 m/s, MG=16 mmHg, DI 0.32, BALDEMAR 1.25 cm2), mild TR, no PH, normal wall motion BCU 07/07/16: bilateral carotids arteries have minimal plaque throughout LHC 02/25/14: successful PTCA/IRVIN to mid to distal LAD d/t severe ISR TTE 01/31/14: LVEF 60%, mild LVDD, calcified AV without Past Med Surg Social Fam HX - Past Medical History Medical history: arthritis, coronary artery disease, diabetes, hyperlipidemia, hypertension, valvular heart disease Psychiatric history: depression - Past Surgical History Surgical History: angioplasty/stent, herniorrhaphy, thyroidectomy - Social History Smoking Status: Never smoker Smokeless Tobacco Status: No Alcohol use: none Drug use: none - Family History Mother Hx Family Cardiac Disorders: Yes Hx Family Respiratory Disorders: No Hx Family Cancer: Yes (breast cancer) Hx Family GI Disorders: No Hx Family Endocrine Disorder: Yes Hx Family Neuromuscular Disorders: No Hx Family Neurologic Disorders: No Hx Family HEENT Disorders: No Hx Family Autoimmune Disorders: No Medications and Allergies Acitretin [Soriatane] 25 mg PO DAILY 09/08/16 [History] Aspirin [Aspirin] 81 mg PO DAILY 09/08/16 [History] Betamethasone/Propylene Glyc [Betamethasone Dp Aug 0.05% Lot] 1 appl TP DAILY [History] Clopidogrel [Plavix] 75 mg PO DAILY 09/08/16 [History] Donepezil HCl [Aricept] 10 mg PO DAILY 09/08/16 [History] Fenofibrate Nanocrystallized [Tricor] 145 mg PO DAILY 09/08/16 [History] Insulin Regular U-500 [HumuLIN R U-500] 80 mm SQ TID 09/08/16 [History] Loratadine [Claritin] 10 mg PO DAILY 09/08/16 [History] Metoprolol [Lopressor] 50 mg PO BID 09/08/16 [History] Mometasone Furoate [Nasonex] 17 gm NS BID 09/08/16 [History] Ramipril [Altace] 10 mg PO BID 09/08/16 [History] Tamsulosin [Flomax] 0.4 mg PO BID 09/08/16 [History] hydroCHLOROthiazide [Hydrochlorothiazide] 25 mg PO DAILY 09/08/16 [History] Multivitamin [Multivitamins] 1 tab PO DAILY 01/19/17 [History] Amoxicillin 875 mg PO BID 02/19/17 [History] Furosemide [Lasix] 40 mg PO DAILY 02/19/17 [History] HYDROcodone/Acet 5/325 mg [[place] 5-325 mg] 1 tab PO BID PRN 02/19/17 [History] Levothyroxine Sodium [Levoxyl] 200 mcg PO DAILY 02/19/17 [History] Meclizine HCl [Verticalm] 25 mg PO DAILY PRN 02/19/17 [History] Montelukast [Singulair] 10 mg PO DAILY 02/19/17 [History] 3 Allergy/AdvReac Type Severity Reaction Status Date / Time codeine AdvReac Vomiting Verified 02/19/17 07:29 Zhwsthr-Cka-Age Reductase AdvReac Muscle Pain Verified 02/19/17 07:29 Inhibitor [Statins] All Systems Review: A 10-system review of systems was performed and is negative for pertinent findings except as documented above in the HPI. - Cardiovascular Cardiovascular: as per HPI, dyspnea at rest, dyspnea on exertion, orthopnea - Respiratory Respiratory: cough, dyspnea Physical Examination Vital Signs, Last 4 Hours Temp Pulse Resp BP Pulse Ox 02/21/17 11:00 97.7 F 69 16 114/68 94 Vital Signs Temp Pulse Resp BP Pulse Ox 02/21/17 11:00 97.7 F 69 16 114/68 94 02/21/17 07:24 16 93 02/21/17 07:18 97.9 F 59 16 82/50 93 02/21/17 04:46 16 94 02/21/17 04:02 97.6 F 59 18 104/67 94 02/21/17 00:43 16 93 02/20/17 23:14 98.9 F 64 16 121/77 93 02/20/17 20:21 16 93 02/20/17 20:00 98.0 F 66 16 127/73 91 02/20/17 15:43 24 98 02/20/17 15:27 98.4 F 66 18 117/67 92 Intake and Output 02/20/17 02/21/17 02/21/17 23:59 07:59 15:59 Intake Total 450 / 450 0 / 0 Output Total 400 / 400 0 / 0 Balance 50 / 50 0 / 0 Intake: IV Fluids 0 / 0 0.9 % Sodium Chloride 500 ML @ 0 / 0 50 mls/hr IVC .Q10H [facility] Rx#: [id number] Oral 450 / 450 0 / 0 Output: Urine 400 / 400 0 / 0 Other: Weight 108.363 kg Blood Glucose* 307 289 Patient Weight 02/21/17 23:59 Weight 108.363 kg General: Conversant, No Apparent Distress HEENT: Atraumatic, Normocephaly, Mucus Membranes Moist Neck: No JVD, Normal carotid pulses Cardiac: Reg Rate and Rhythm, Normal S1 and S2, Other (2/6 RASHMI noted) Lungs: Other (diminished) Neuro: Alert and responsive, No focal deficits noted Abdomen: Soft, Non-Tender Skin: No rashes noted on visualized skin Musculoskeletal: No Chest Wall Tenderness Extremities: No Clubbing, No Cyanosis, No Edema, Normal Pulses Results 02/21/17 03:19 02/21/17 04:55 Lab Results 02/21/17 02/21/17 03:19 04:55 WBC 12.0 H Hgb 13.9 Hct 40.7 Plt Count 254 Sodium 135 L Potassium 4.4 Chloride 101 Carbon Dioxide 24 BUN 48 H D Creatinine 2.29 H Glucose 241 H Calcium 9.6 Short CBC 02/21/17 Range/Units 03:19 WBC 12.0 H (4.3-11.1) K/mcL Hgb 13.9 (12.9-16.9) g/dL Hct 40.7 (37.5-50.1) % Plt Count 254 (140-400) K/mcL Neutrophils # 3.3 (1.6-8.9) K/mcL BMP 02/21/17 Range/Units 04:55 Sodium 135 L (136-145) mEq/L Potassium 4.4 (3.5-4.5) mEq/L Chloride 101 (98-109) mEq/L Carbon Dioxide 24 (19-29) mEq/L BUN 48 H D (8-26) mg/dL Creatinine 2.29 H (0.72-1.25) mg/dL Glucose 241 H (70-99) mg/dL Calcium 9.6 (8.6-10.8) mg/dL Active Medications Hydrocodone Bitart/Acetaminophen ([place] 5-325 Mg) 1 tab PO BID PRN PRN Reason: Pain Stop: 08/21/17 12:23 Last Admin: 02/21/17 09:39 Dose: 1 tab Aspirin (Aspirin) 81 mg PO DAILY BERYL Stop: 08/22/17 09:01 Last Admin: 02/21/17 09:30 Dose: 81 mg Clopidogrel Bisulfate (Plavix) 75 mg PO DAILY BERYL Stop: 08/22/17 09:01 Last Admin: 02/21/17 09:30 Dose: 75 mg Dextrose/Water (Dextrose 50% (Syg)) 25 ml IVP AD PRN PRN Reason: Hypoglycemia Stop: 08/21/17 21:35 Donepezil HCl (Aricept) 10 mg PO DAILY BERYL Stop: 08/22/17 09:01 Last Admin: 02/21/17 09:30 Dose: 10 mg Fenofibrate (Tricor) 162 mg PO DAILY BERYL Stop: 08/22/17 09:01 Last Admin: 02/21/17 09:30 Dose: 162 mg Glucagon (Glucagen) 1 mg IM ONCE PRN PRN Reason: Hypoglycemia Stop: 08/21/17 21:35 Glucose (Gluctose) 15 gm PO ONCE PRN PRN Reason: Hypoglycemia Stop: 08/21/17 21:35 Glucose (Gluctose) 30 gm PO ONCE PRN PRN Reason: Hypoglycemia Stop: 08/21/17 21:35 Guaifenesin (Robitussin/Dm) 10 ml PO Q6HR PRN PRN Reason: Cough Stop: 08/23/17 12:39 Last Admin: 02/21/17 14:23 Dose: 10 ml Heparin Sodium (Porcine) (Heparin) 5,000 unit SQ Q12HCO [facility] Stop: 08/23/17 18:01 Azithromycin 500 mg/ Dextrose 250 mls @ 252 mls/hr IVPB Q24H [facility] Stop: 08/21/17 13:01 Last Admin: 02/21/17 12:16 Dose: 250 mls/hr Ceftriaxone Sodium 1,000 mg/ (Sterile Water) 10 mls @ 300 mls/hr IVP Q24H [facility] Stop: 08/21/17 15:54 Last Admin: 02/20/17 18:57 Dose: 300 mls/hr Dextrose (Dextrose 5%) 1,000 mls @ 100 mls/hr IVC .Q10H PRN PRN Reason: HYPOGLYCEMIA Stop: 08/21/17 21:35 Sodium Chloride (0.9 % Sodium Chloride) 500 mls @ 125 mls/hr IVC .Q4H [facility] Stop: 02/21/17 15:19 Last Admin: 02/21/17 12:17 Dose: 125 mls/hr Insulin Detemir (Levemir) 10 unit SQ HS [facility] Stop: 08/23/17 21:01 Insulin Human Lispro (Humalog) 0 units SQ HS [facility] PRN Reason: Protocol Stop: 08/21/17 21:46 Last Admin: 02/20/17 22:08 Dose: 6 units Insulin Human Lispro (Humalog) 0 units SQ TIDAC [facility] PRN Reason: Protocol Stop: 08/22/17 07:31 Last Admin: 02/21/17 12:17 Dose: 10 units Levothyroxine Sodium (Synthroid) 200 mcg PO 0630 [facility] Stop: 08/22/17 06:31 Last Admin: 02/21/17 06:28 Dose: 200 mcg Loratadine (Claritin) 10 mg PO DAILY [facility] PRN Reason: Protocol Stop: 08/22/17 09:01 Last Admin: 02/21/17 09:30 Dose: 10 mg Meclizine HCl (Antivert) 25 mg PO DAILY PRN PRN Reason: Vertigo Metoprolol Tartrate (Lopressor) 50 mg PO BID BERYL Stop: 08/21/17 21:01 Naloxone HCl (Narcan) 0.4 mg IVP Q2MIN PRN PRN Reason: Opioid Reversal Stop: 08/21/17 12:21 Sodium Chloride ([place] Nasal [place]) 2 spray NS Q2H PRN PRN Reason: Congestion Stop: 08/23/17 06:24 Last Admin: 02/21/17 14:24 Dose: 2 spray Tamsulosin HCl (Flomax) 0.4 mg PO BID BERYL PRN Reason: Protocol Stop: 08/21/17 21:01 Last Admin: 02/21/17 09:30 Dose: 0.4 mg - Imaging and Cardiology Echo: report reviewed Cardiac cath: report reviewed - EKG Interpretation EKG results cardiology: personally reviewed (SR, LVH, possible anteroseptal [place]) , other (12 hr tele AVG HR 67, SR) Consult Discharge Plan - Plan Referrals: Willow Singer CNP [Primary Care Provider] - (web request sent on 02/21/17) <Ramírez Beckwith - Last Filed: 02/21/17 16:42> Date of Encounter: 02/21/17 - Attending Attestation 76-year-old with shortness, bronchitis and recent onset of cough and acute renal failure presents to [facility]. He has a history of coronary artery disease and moderate severe aortic stenosis currently on most recent echo was found to have progression and now severe aortic stenosis. He has nonischemic trending troponins with a peak of 0.05. Denies any chest pain or shortness of breath above baseline prior to his presentation. He also denies heat, orthopnea, PND and maintains activities of daily life. With his current acute on chronic kidney disease and left heart catheter may result in worsening renal function. Optimal ischemic workup includes a left heart catheter during his admission due to history of coronary artery disease and previous PCI with mild troponin release and severe aortic stenosis. If the patient's kidney function does not improve during this admission and outpatient left heart Is reasonable Assessment and Plan Discussion w patient/family: The assessment and plan as outlined above was discussed with the patient and/or family members who expressed understanding and agreement. All questions were answered. Thank you for involving us in the care of your patient. Please call with any questions. History of Present Illness History of present illness: Mr. Garrido is a 76 year old male All Systems Review: A 10-system review of systems was performed and is negative for pertinent findings except as documented above in the HPI. Physical Examination Vital Signs, Last 4 Hours Temp Pulse Resp BP Pulse Ox 02/21/17 15:00 97.6 F 80 16 139/73 96 Results 02/21/17 03:19 02/21/17 04:55 Lab Results 02/21/17 02/21/17 03:19 04:55 WBC 12.0 H Hgb 13.9 Hct 40.7 Plt Count 254 Sodium 135 L Potassium 4.4 Chloride 101 Carbon Dioxide 24 BUN 48 H D Creatinine 2.29 H Glucose 241 H Calcium 9.6
[2017-02-21 14:49] LABS: Bilirubin,Urine Negative (Negative); Blood,Urine Negative (Negative); Clarity,Urine Clear (Clear); Color,Urine Yellow (Yellow); Glucose,Urine (UA) 100 mg/dL (Normal); Ketones,Urine Negative (Negative); Leukocyte Esterase,Urine Negative (Negative); Nitrite,Urine Negative (Negative); Protein,Urine Negative (Neg-Trace); Specific Gravity,Urine 1.023 (1.010-1.025); Urobilinogen,Urine Normal (Normal)
[2017-02-21] MEDS: *HR* Heparin 5,000 UNIT/ML VIAL SQ SCH (18:01)
[2017-02-21] MEDS: cefTRIAXone 1,000 MG in Water for inj. (sterile) 10 ML IVP SCH (22:25)
[2017-02-21] MEDS: Insulin DETEMIR 100 UNIT/ML X5UNITS SQ SCH (22:28)
[2017-02-22 06:03] LABS: Basophils # 0.1 K/mcL (0.0-0.2); Basophils % 0.5 %; Eosinophils # 0.2 K/mcL (0.0-0.6); Eosinophils % 2.2 %; Hematocrit 41.7 % (37.5-50.1); Hemoglobin 14.1 g/dL (12.9-16.9); Immature Granulocytes % 0.4 % (0-4); Immature Platelets 3.2 % (1.1-6.1); Lymphocytes # 5.9 K/mcL (0.6-4.6); Lymphocytes % 58.6 %; Mean Corpuscular HGB Conc 33.8 g/dL (31.6-35.5); Mean Corpuscular Hemoglobin 32.8 pg (28.0-33.3); Mean Platelet Volume 9.8 fL (9.4-12.4); Monocytes # 0.6 K/mcL (0.0-1.3); Monocytes % 5.9 %; Neutrophils # 3.3 K/mcL (1.6-8.9); Platelet Count 249 K/mcL (140-400); Red Cell Distribution Width 13.1 % (11.5-14.5); Segmented Neutrophils % 32.4 %
[2017-02-22 06:25] LABS: Calcium 9.7 mg/dL (8.6-10.8); Potassium 4.9 mEq/L (3.5-4.5)
[2017-02-22] MEDS: *HR* Heparin 5,000 UNIT/ML VIAL SQ SCH ×2 (06:44→17:07)
--- NOTE | 2017-02-22 07:45 | Internal Med Progress Note ---
<Kevin De Leon - Last Filed: 02/22/17 15:18> Date of Encounter: 02/22/17 Time of Encounter: 07:33 - Assessment and plan (1) Bronchitis Current Visit: Yes Status: Acute Assessment and plan: Patient was on amoxicillin as an outpatient without improvement Has been receiving Rocephin + azithromycin here Regarding his cough, RobitussinDM not helping Patient has been on high dose JAG-I (ramipril 10mg BID verified with pharmacy) for years but nonetheless we will try changing to ARB. Patient received 2 doses of lisinopril (Zestril) during this hospitalization, last dose 2 days ago Will try Tessalon Perles (2) Dyspnea on exertion Current Visit: Yes Status: Acute Assessment and plan: Most likely related to bronchitis As far as cardiac etiology (severe on echo and moderate LV diastolic dysfunction), cardiology thinks most likely bronchitis Wells Score suggests low likelihood of PE Recommend patient comply with his BiPAP (3) [id number] kidney injury Current Visit: Yes Status: Acute Assessment and plan: Chart review shows baseline creatinine around 1.50, increased to 2.29 yesterday , trending back down today at 1.70 Appreciate nephrology recommendations (pending) Currently holding following home medications: Lasix, lisinopril. Will resume home dose of HCTZ as his renal function is near baseline Renal ultrasound pending Urinalysis negative for protein or signs of UTI (glucose elevated) Recommend repeating BMP as outpatient Qualifiers: Acute renal failure type: unspecified Chronic kidney disease stage: stage 3 (moderate) Qualified Code(s): N17.9 - Acute kidney failure, unspecified; N18.3 - Chronic kidney disease, stage 3 (moderate); N18.3 - Chronic kidney disease, stage 3 (moderate) (4) Stage 3 chronic kidney disease Current Visit: Yes Status: Acute Assessment and plan: Nephrology recommendations pending Follows with nephrology (Dr. Ahumada) as outpatient. Will recommend he follow up with their office upon discharge (5) Severe aortic stenosis Current Visit: Yes Status: Acute Assessment and plan: Appreciate cardiology recommendations who suspect bothersome cough over past week is more likely due to bronchitis rather than his aortic stenosis Recommend repeat ischemic evaluation which is not urgent Recommend against LHC given CKD III and current creatinine 2.29 Recommend outpatient follow-up and once renal function back to baseline possible diagnostic LHC then referral for valve replacement (6) Hypertension Current Visit: Yes Status: Acute Assessment and plan: We will avoid aggressive blood pressure control given his but keep BP close to baseline Blood pressure has been stable, this morning around 120/70 Currently receiving Lopressor 50 mg Holding HCTZ, Lasix, lisinopril Will recommend patient change his home ramipril to losartan upon discharge Qualifiers: Hypertension type: unspecified Qualified Code(s): I10 - Essential (primary ) hypertension (7) CAD (coronary artery disease) Current Visit: Yes Status: Acute Assessment and plan: PTCA/IRVIN to LAD 02/2014 Continue ASA, Plavix, beta nu Qualifiers: Coronary Disease-Associated Artery/Lesion type: [place] artery [place] vs. transplanted heart: [place] heart Associated angina: without angina Qualified Code(s): I25.10 - Atherosclerotic heart disease of [place] coronary artery without angina pectoris (8) Cardiac enzymes elevated Current Visit: Yes Status: Acute Assessment and plan: Likely due to CKD and demand ischemia No chest pain (9) Diabetes mellitus Current Visit: Yes Status: Acute Assessment and plan: On Levemir to 10 units twice a day, will increase as blood glucose has been poorly controlled We will start prandial insulin Continue diabetic diet Qualifiers: Diabetes mellitus type: type 2 Diabetes mellitus complication status: with unspecified complications Diabetes mellitus nursing home insulin use: 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 Has documented allergy to statins. Qualifiers: Hyperlipidemia type: mixed hyperlipidemia Qualified Code(s): E78.2 - Mixed hyperlipidemia - Subjective Interval history: 76-year-old male with h/o COPD presented to ED 02/19/17 with worsening cough and congestion. CXR showed slightly increased interstitial opacities left ( lower lobe) > right. WBCs = 14.0, troponin 0.05, Cr =1.54, lactic acid = 2.7. Admitted for likely COPD exacerbation with demand ischemia and possible ADRIANA Patient seen and examined at bedside this morning. He reports his shortness of breath is improved however his persistent cough is still bothersome and this is his biggest concern. He denies chest pain, palpitations, or new complaints - Constitutional Vitals: Temp Pulse Resp BP Pulse Ox 99.8 F H 63 19 120/68 95 02/22/17 06:40 02/22/17 06:40 02/22/17 06:40 02/22/17 06:40 02/22/17 06:40 General appearance: Present: A&O X 3, pleasant, no acute distress, answers questions appropriately - Respiratory Respiratory exam: Present: decreased breath sounds, wheezes. Absent: accessory muscle use, respiratory distress, tachypnea - Cardiovascular Cardiovascular exam: Present: RRR, +S1, +S2, systolic murmur - GI/Abdominal GI/Abdominal exam: Present: soft. Absent: distended, tenderness - Extremities Exam Extremities exam: Present: warm. Absent: calf tenderness, cyanotic, pedal edema - Neurological Exam Neurological exam: Present: alert, oriented X3, no focal deficits Internal Medicine: Result - Labs CBC & Chem 7: 02/22/17 05:41 02/22/17 05:41 Labs: Short CBC 02/22/17 Range/Units 05:41 WBC 10.1 (4.3-11.1) K/mcL Hgb 14.1 (12.9-16.9) g/dL Hct 41.7 (37.5-50.1) % Plt Count 249 (140-400) K/mcL Neutrophils # 3.3 (1.6-8.9) K/mcL BMP 02/22/17 05:41 Sodium 138 Potassium 4.9 H Chloride 103 Carbon Dioxide 25 BUN 45 H Creatinine 1.70 H Glucose 264 H Calcium 9.7 Urine 02/21/17 Range/Units 14:36 Urine Color Yellow (Yellow) Urine Clarity Clear (Clear) Urine pH 6.0 (5.0-8.0) pH Units Ur Specific [place] 1.023 (1.010-1.025) Urine Protein Negative (Neg-Trace) mg/dL Urine Glucose (UA) 100 H (Normal) mg/dL - ABG Interpretation ABG results: PT/INR, D-dimer PT 12.4 Seconds (9.4-12.1) H 02/20/17 00:56 - VTE Documentation of Mechanical Device: Graduated compression elastic hosiery Consult Discharge Plan - Plan Referrals: Willow Singer CNP [Primary Care Provider] - 02/23/17 8:30 am () <Theron Phelps - Last Filed: 02/22/17 17:09> Date of Encounter: 02/22/17 - Constitutional Vitals: Temp Pulse Resp BP Pulse Ox 98.3 F 64 20 115/67 95 02/22/17 15:48 02/22/17 15:48 02/22/17 15:48 02/22/17 15:48 02/22/17 15:48 Internal Medicine: Result - Labs CBC & Chem 7: 02/22/17 05:41 02/22/17 05:41 Labs: Short CBC 02/22/17 Range/Units 05:41 WBC 10.1 (4.3-11.1) K/mcL Hgb 14.1 (12.9-16.9) g/dL Hct 41.7 (37.5-50.1) % Plt Count 249 (140-400) K/mcL Neutrophils # 3.3 (1.6-8.9) K/mcL BMP 02/22/17 05:41 Sodium 138 Potassium 4.9 H Chloride 103 Carbon Dioxide 25 BUN 45 H Creatinine 1.70 H Glucose 264 H Calcium 9.7 - ABG Interpretation ABG results: PT/INR, D-dimer PT 12.4 Seconds (9.4-12.1) H 02/20/17 00:56 - Impressions Impressions Retroperitoneum Ultrasound 02/22/17 09:00 IMPRESSION: 1. Normal sonographic appearance of the kidneys. No evidence of obstructive uropathy. 2. Prostatomegaly. 3. Mild diffuse thickening of the bladder wall. Please correlate with clinical symptoms of cystitis. Alternatively, this can be due to chronic bladder outlet obstruction. D/ / 02/22/2017 10:28:04 Hany Suero MD / jimi Interpreting Provider: Hany Suero MD - Attending Attestation I have independently seen and examined this patient on 02/22/17 and plan of care is as reflected in the resident physician's documentation Being managed for SOB, bronchitis, COPDE, Severe , ADRIANA on CKD No new complains Physical exam remarkable only for murmur Labs and Imaging reviewed: Renal USS unremarkable. ADRIANA is improving and cr is almost at baseline He has not had ACEI since admission, start ARB instead, restart HCTZ. Cardio eval noted. Clinically stable Rest of details as
[2017-02-22] MEDS: Insulin LISPRO 300 UNITS/3 ML VIAL SQ SCH ×4 (08:38→21:15)
[2017-02-22] MEDS: Fenofibrate 54 MG TABLET PO SCH (08:38)
[2017-02-22] MEDS: *HR* HYDROcodone/Acet 5/325 mg TABLET PO PRN (08:38)
[2017-02-22] MEDS: Loratadine 10 MG TABLET PO SCH (08:38)
[2017-02-22] MEDS: Aspirin 81 MG TAB.CHEW PO SCH (08:39)
--- NOTE | 2017-02-22 10:58 | Cardiology Progress Note ---
Date of Encounter: 02/22/17 Time of Encounter: 10:56 Assessment and Plan (1) Severe aortic stenosis Current Visit: Yes Status: Acute Previously known moderate , now progressed to severe. MG 35mmgHg, Peak gradient 54mmHg, valve area 0.86cm2, mean velocity 2.78 m/sec, peak velocity 3.67 m/sec. EF remains preserved. Pt admits to worsening dyspnea, but most bothersome symptom is cough over the past week--suspect secondary to bronchitis and not his . EKG with reciprocal LVH changes. [facility] 02/25/14: successful PTCA/IRVIN to mid to distal LAD d/t severe ISR. Pt denies chest pain. Given severe , repeat ischemic eval will be warranted. Renal function improved today, creatinine was 2.29 yesterday, 1.70 today. Pt does not think he would be able to lie flat for a LHC due to his frequent coughing episodes. Recommend outpt follow-up and once renal function is back to baseline and cough has improved, consider outpt diagnostic LHC then referral for valve replacement. Pt agrees to plan. Pt denies syncope. Cardiology is signing off. Reconsult PRN. Will coordinate close outpt follow- up. (2) Elevated troponin Current Visit: Yes Status: Acute Troponins 0.05, 0.04, 0.05, 0.04--flat and adynamic in setting of bronchitis and ADRIANA on CKD. Borderline. Nondiagnostic for ACS, secondary to demand ischemia. EF preserved on echo. Severe as above. (3) CAD (coronary artery disease) Current Visit: Yes Status: Acute [facility] 02/25/14: successful PTCA/IRVIN to mid to distal LAD d/t severe ISR. Intolerant to statins. Continue ASA, Plavix, BB. Qualifiers: Coronary Disease-Associated Artery/Lesion type: [place] artery [place] vs. transplanted heart: [place] heart Associated angina: without angina Qualified Code(s): I25.10 - Atherosclerotic heart disease of [place] coronary artery without angina pectoris Discussion w patient/family: The assessment and plan as outlined above was discussed with the patient and/or family members who expressed understanding and agreement. All questions were answered. Thank you for involving us in the care of your patient. Please call with any questions. I will discuss all the above with Dr. Beckwith and make changes as necessary. Subjective Principal diagnosis: Severe , bronchitis Interval history: Pt reports cough persists, not improved. He denies chest pain overnight. Objective Vital Signs Temp Pulse Resp BP Pulse Ox 02/22/17 06:40 99.8 F H 63 19 120/68 95 02/22/17 03:33 98.1 F 60 15 126/69 95 02/22/17 00:20 98.1 F 61 16 113/66 94 02/21/17 15:00 97.6 F 80 16 139/73 96 02/21/17 11:00 97.7 F 69 16 114/68 94 Intake and Output 02/21/17 02/22/17 02/22/17 23:59 07:59 15:59 Intake Total 240 / 240 240 / 240 Output Total 800 / 800 1300 / 1300 Balance -560 / -560 -1060 / -1060 Intake: Oral 240 / 240 240 / 240 Output: Urine 800 / 800 1300 / 1300 Other: Stool Size Moderate Stool Consistency soft formed Stool Color Brown # Voids 1 Weight 110.223 kg Blood Glucose* 295 229 Patient Weight 02/22/17 23:59 Weight 110.223 kg General: Conversant, No Apparent Distress HEENT: Atraumatic, Normocephaly, Mucus Membranes Moist Neck: No JVD, Normal carotid pulses Cardiac: Reg Rate and Rhythm, Normal S1 and S2, Other (grade 2/6 RASHMI) Lungs: Other (diminished) Neuro: Alert and responsive, No focal deficits noted Abdomen: Soft, Non-Tender Skin: No rashes noted on visualized skin Musculoskeletal: No Chest Wall Tenderness Extremities: No Clubbing, No Cyanosis, No Edema, Normal Pulses Results 02/22/17 05:41 02/22/17 05:41 Lab Results 02/22/17 02/22/17 05:41 05:41 WBC 10.1 Hgb 14.1 Hct 41.7 Plt Count 249 Sodium 138 Potassium 4.9 H Chloride 103 Carbon Dioxide 25 BUN 45 H Creatinine 1.70 H Glucose 264 H Calcium 9.7 Short CBC 02/22/17 Range/Units 05:41 WBC 10.1 (4.3-11.1) K/mcL Hgb 14.1 (12.9-16.9) g/dL Hct 41.7 (37.5-50.1) % Plt Count 249 (140-400) K/mcL Neutrophils # 3.3 (1.6-8.9) K/mcL BMP 02/22/17 Range/Units 05:41 Sodium 138 (136-145) mEq/L Potassium 4.9 H (3.5-4.5) mEq/L Chloride 103 (98-109) mEq/L Carbon Dioxide 25 (19-29) mEq/L BUN 45 H (8-26) mg/dL Creatinine 1.70 H (0.72-1.25) mg/dL Glucose 264 H (70-99) mg/dL Calcium 9.7 (8.6-10.8) mg/dL Urine 02/21/17 Range/Units 14:36 Urine Color Yellow (Yellow) Urine Clarity Clear (Clear) Urine pH 6.0 (5.0-8.0) pH Units Ur Specific [place] 1.023 (1.010-1.025) Urine Protein Negative (Neg-Trace) mg/dL Urine Glucose (UA) 100 H (Normal) mg/dL Impressions Retroperitoneum Ultrasound 02/22/17 09:00 IMPRESSION: 1. Normal sonographic appearance of the kidneys. No evidence of obstructive uropathy. 2. Prostatomegaly. 3. Mild diffuse thickening of the bladder wall. Please correlate with clinical symptoms of cystitis. Alternatively, this can be due to chronic bladder outlet obstruction. D/ / 02/22/2017 10:28:04 Hany Suero MD / jimi Interpreting Provider: Hany Suero MD Active Medications Hydrocodone Bitart/Acetaminophen ([place] 5-325 Mg) 1 tab PO BID PRN PRN Reason: Pain Stop: 08/21/17 12:23 Last Admin: 02/22/17 08:38 Dose: 1 tab Aspirin (Aspirin) 81 mg PO DAILY BERYL Stop: 08/22/17 09:01 Last Admin: 02/22/17 08:39 Dose: 81 mg Azithromycin (Zithromax) 500 mg PO Q24H BERYL Stop: 08/24/17 13:01 Clopidogrel Bisulfate (Plavix) 75 mg PO DAILY BERYL Stop: 08/22/17 09:01 Last Admin: 02/22/17 08:38 Dose: 75 mg Dextrose/Water (Dextrose 50% (Syg)) 25 ml IVP AD PRN PRN Reason: Hypoglycemia Stop: 08/21/17 21:35 Donepezil HCl (Aricept) 10 mg PO DAILY [facility] Stop: 08/22/17 09:01 Last Admin: 02/22/17 08:38 Dose: 10 mg Fenofibrate (Tricor) 162 mg PO DAILY [facility] Stop: 08/22/17 09:01 Last Admin: 02/22/17 08:38 Dose: 162 mg Glucagon (Glucagen) 1 mg IM ONCE PRN PRN Reason: Hypoglycemia Stop: 08/21/17 21:35 Glucose (Gluctose) 15 gm PO ONCE PRN PRN Reason: Hypoglycemia Stop: 08/21/17 21:35 Glucose (Gluctose) 30 gm PO ONCE PRN PRN Reason: Hypoglycemia Stop: 08/21/17 21:35 Guaifenesin (Robitussin/Dm) 10 ml PO Q6HR PRN PRN Reason: Cough Stop: 08/23/17 12:39 Last Admin: 02/21/17 22:54 Dose: 10 ml Heparin Sodium (Porcine) (Heparin) 5,000 unit SQ Q12HCO [facility] Stop: 08/23/17 18:01 Last Admin: 02/22/17 06:44 Dose: 5,000 unit Dextrose (Dextrose 5%) 1,000 mls @ 100 mls/hr IVC .Q10H PRN PRN Reason: HYPOGLYCEMIA Stop: 08/21/17 21:35 Ceftriaxone Sodium 1,000 mg/ (Sterile Water) 10 mls @ 300 mls/hr IVP Q24H [facility] Stop: 08/23/17 20:01 Last Admin: 02/21/17 22:25 Dose: 300 mls/hr Insulin Detemir (Levemir) 10 unit SQ HS [facility] Stop: 08/23/17 21:01 Last Admin: 02/21/17 22:28 Dose: 10 unit Insulin Human Lispro (Humalog) 0 units SQ HS [facility] PRN Reason: Protocol Stop: 08/21/17 21:46 Last Admin: 02/21/17 22:31 Dose: 5 units Insulin Human Lispro (Humalog) 0 units SQ TIDAC [facility] PRN Reason: Protocol Stop: 08/22/17 07:31 Last Admin: 02/22/17 08:38 Dose: 8 units Levothyroxine Sodium (Synthroid) 200 mcg PO 0630 [facility] Stop: 08/22/17 06:31 Last Admin: 02/22/17 06:45 Dose: 200 mcg Loratadine (Claritin) 10 mg PO DAILY BERYL PRN Reason: Protocol Stop: 08/22/17 09:01 Last Admin: 02/22/17 08:38 Dose: 10 mg Meclizine HCl (Antivert) 25 mg PO DAILY PRN PRN Reason: Vertigo Metoprolol Tartrate (Lopressor) 50 mg PO BID BERYL Stop: 08/21/17 21:01 Last Admin: 02/22/17 08:38 Dose: 50 mg Naloxone HCl (Narcan) 0.4 mg IVP Q2MIN PRN PRN Reason: Opioid Reversal Stop: 08/21/17 12:21 Sodium Chloride ([place] Nasal [place]) 2 spray NS Q2H PRN PRN Reason: Congestion Stop: 08/23/17 06:24 Last Admin: 02/21/17 14:24 Dose: 2 spray Tamsulosin HCl (Flomax) 0.4 mg PO BID BERYL PRN Reason: Protocol Stop: 08/21/17 21:01 Last Admin: 02/22/17 08:38 Dose: 0.4 mg - Imaging and Cardiology Echo: report reviewed - VTE Documentation of Mechanical Device: Graduated compression elastic hosiery Consult Discharge Plan - Plan Referrals: Willow Singer CNP [Primary Care Provider] - 02/23/17 8:30 am ()
[2017-02-22] MEDS: Azithromycin 250 MG TABLET PO SCH (13:26)
[2017-02-22 15:10] LABS: Procalcitonin 0.36 ng/mL (<=0.10)
[2017-02-22] MEDS ORDERED: Insulin LISPRO 300 UNITS/3 ML VIAL SQ SCH (17:00)
[2017-02-22] MEDS: hydroCHLOROthiazide 25 MG TABLET PO SCH (17:07)
[2017-02-22] MEDS: Benzonatate 100 MG CAPSULE PO PRN ×2 (17:07→23:41)
[2017-02-22] MEDS: cefTRIAXone 1,000 MG in Water for inj. (sterile) 10 ML IVP SCH (20:53)
[2017-02-22] MEDS: Insulin DETEMIR 100 UNIT/ML X5UNITS SQ SCH ×2 (21:14)
[2017-02-23 05:17] LABS: Basophils # 0.1 K/mcL (0.0-0.2); Basophils % 0.6 %; Eosinophils # 0.3 K/mcL (0.0-0.6); Eosinophils % 2.4 %; Immature Granulocytes % 0.4 % (0-4); Lymphocytes # 6.4 K/mcL (0.6-4.6); Lymphocytes % 60.4 %; Mean Corpuscular HGB Conc 34.2 g/dL (31.6-35.5); Mean Corpuscular Hemoglobin 33.1 pg (28.0-33.3); Mean Corpuscular Volume 96.7 fL (83.0-100.0); Monocytes # 0.7 K/mcL (0.0-1.3); Monocytes % 6.3 %; Neutrophils # 3.2 K/mcL (1.6-8.9); Platelet Count 241 K/mcL (140-400); Red Blood Count 3.93 M/mcL (4.19-5.50); Segmented Neutrophils % 29.9 %
[2017-02-23 05:36] LABS: Calcium 9.5 mg/dL (8.6-10.8)
[2017-02-23] MEDS: *HR* Heparin 5,000 UNIT/ML VIAL SQ SCH ×2 (07:10→17:53)
[2017-02-23] MEDS: Insulin DETEMIR 100 UNIT/ML X5UNITS SQ SCH ×2 (08:09→21:24)
[2017-02-23] MEDS: Aspirin 81 MG TAB.CHEW PO SCH (08:10)
[2017-02-23] MEDS: hydroCHLOROthiazide 25 MG TABLET PO SCH (08:10)
[2017-02-23] MEDS: Loratadine 10 MG TABLET PO SCH (08:10)
[2017-02-23] MEDS: *HR* HYDROcodone/Acet 5/325 mg TABLET PO PRN (08:10)
[2017-02-23] MEDS: Fenofibrate 54 MG TABLET PO SCH (08:10)
[2017-02-23] MEDS: Benzonatate 100 MG CAPSULE PO PRN ×2 (08:10→21:30)
[2017-02-23] MEDS: Insulin LISPRO 300 UNITS/3 ML VIAL SQ SCH ×5 (08:11→17:53)
--- NOTE | 2017-02-23 11:09 | Nephrology Progress Note ---
Date of Encounter: 02/23/17 Time of Encounter: 11:07 - Assessment and Plan (1) Bronchitis Current Visit: Yes Status: Acute Cough seems to be improving although he thinks it's unchanged. Continue to hold JAG-I in the event that it is contributing. Other management per primary team. (2) Diabetes mellitus Current Visit: Yes Status: Acute Qualifiers: Diabetes mellitus type: type 2 Diabetes mellitus complication status: with unspecified complications Diabetes mellitus nursing home insulin use: unspecified nursing home insulin use status Qualified Code(s): E11.8 - Type 2 diabetes mellitus with unspecified complications (3) Hypertension Current Visit: Yes Status: Acute Qualifiers: Hypertension type: unspecified Qualified Code(s): I10 - Essential (primary ) hypertension (4) Severe aortic stenosis Current Visit: Yes Status: Acute (5) Stage 3 chronic kidney disease Current Visit: Yes Status: Acute (6) Ibctm-hj-bvepkos kidney injury Current Visit: Yes Status: Acute Renal function back to baseline. F/u with [facility] Dr. Ahumada as previously scheduled. Will sign off call if questions or concerns. Qualifiers: Acute renal failure type: unspecified Chronic kidney disease stage: stage 3 (moderate) Qualified Code(s): N17.9 - Acute kidney failure, unspecified; N18.3 - Chronic kidney disease, stage 3 (moderate); N18.3 - Chronic kidney disease, stage 3 (moderate) Subjective Principal diagnosis: Severe , bronchitis Interval history: Patient still complains of cough. Objective - Vital Signs Vital signs: Vital Signs Temp Pulse Resp BP Pulse Ox 02/23/17 08:21 93 02/23/17 06:57 98.2 F 67 18 135/67 93 02/23/17 04:31 98.7 F 61 16 149/78 96 02/23/17 00:25 98.4 F 52 16 131/74 96 02/22/17 18:53 98.6 F 66 16 135/69 96 02/22/17 15:48 98.3 F 64 20 115/67 95 02/22/17 11:31 98.3 F 58 18 120/61 94 Intake and Output 02/22/17 02/23/17 02/23/17 23:59 07:59 15:59 Intake Total 730 / 730 150 / 150 240 / 240 Output Total 300 / 300 400 / 400 Balance 430 / 430 -250 / -250 240 / 240 Intake: IV Fluids Rocephin 1,000 MG In Water for inj. (sterile) 10 ML @ 300 mls/ hr IVP Q24H BERYL Rx#:[id number] Oral 710 / 710 150 / 150 240 / 240 Output: Urine 300 / 300 400 / 400 Other: Meal Dinner Breakfast Percent of Meal Consumed 90% 100% Stool Size Large Stool Consistency soft Stool Color Brown # Voids 1 1 # Bowel Movements 1 Weight 109.769 kg Blood Glucose* 242 263 Patient Weight 02/23/17 23:59 Weight 109.769 kg - General Appearance General appearance: Present: well-developed, well-nourished EENT: Present: ATNC Neurologic: Present: alert and oriented x3 Psychiatric: Present: mood/affect appropriate - Lab 02/23/17 04:47 02/23/17 04:47 Most recent lab results Calcium 9.5 mg/dL (8.6-10.8) 02/23/17 04:47 Phosphorus 3.5 mg/dL (2.3-4.7) 02/20/17 10:43 Magnesium 1.9 mg/dL (1.6-2.6) 02/20/17 00:56 - VTE Documentation of Mechanical Device: Graduated compression elastic hosiery Consult Discharge Plan - Plan Referrals: Willow Singer CNP [Primary Care Provider] - 03/07/17 9:00 am ()
[2017-02-23] MEDS ORDERED: GuaiFENesin/Codeine Oral Soln 5 ML UDC PO ONE (11:25)
[2017-02-23] MEDS: Azithromycin 250 MG TABLET PO SCH (12:29)
[2017-02-23 12:46] LABS: Mycoplasma pneumoniae IgG 0.04 U/L (<=0.09)
--- NOTE | 2017-02-23 14:39 | Internal Med Progress Note ---
<Aditya Zamora Palmer - Last Filed: 02/23/17 14:41> Date of Encounter: 02/23/17 Time of Encounter: 14:39 - Assessment and plan (1) Bronchitis Current Visit: Yes Status: Acute Assessment and plan: Unchanged per patient report however patient does appear to be coughing less. Patient is currently on Tessalon Perles and Robitussin DM. Patient has a stated codeine allergy but discussing this with him he states that when he took it in the past he took it at higher doses for pain and had some nausea and vomiting with it. Patient denies anaphylactic reaction or hives. Patient is willing to try a dose to see if it helps with his cough. If he tolerates this well will trend shows Robitussin-DM to Robitussin w/ codeine. (2) Severe aortic stenosis Current Visit: Yes Status: Acute Assessment and plan: Unlikely contributing to patient's shortness of breath. No angina or syncope. Patient seen by cardiology and per echocardiogram has aortic stenosis has advanced severe . Cardiology is recommending close outpatient follow-up for left heart cath and possible referral for valve replacement. We will arrange close outpatient follow-up. (3) Diabetes mellitus Current Visit: Yes Status: Acute Qualifiers: Diabetes mellitus type: type 2 Diabetes mellitus complication status: with unspecified complications Diabetes mellitus senior living insulin use: unspecified senior living insulin use status Qualified Code(s): E11.8 - Type 2 diabetes mellitus with unspecified complications (4) Cotta-wo-fihzdzq kidney injury Current Visit: Yes Status: Resolved Assessment and plan: Acute kidney injury is resolved, creatinine is back to baseline, 1.58 today. Patient is having good urine output. Patient does have mild hyperkalemia, unlikely related to his acute kidney injury. No EKG changes, we will give Kayexalate 15 g one time. Recheck in the morning. Qualifiers: Acute renal failure type: unspecified Chronic kidney disease stage: stage 3 (moderate) Qualified Code(s): N17.9 - Acute kidney failure, unspecified; N18.3 - Chronic kidney disease, stage 3 (moderate); N18.3 - Chronic kidney disease, stage 3 (moderate) (5) Stage 3 chronic kidney disease Current Visit: Yes Status: Chronic (6) Hypertension Current Visit: Yes Status: Acute Assessment and plan: Blood pressure is under good control. Continue current regimen. Qualifiers: Hypertension type: unspecified Qualified Code(s): I10 - Essential (primary ) hypertension (7) CAD (coronary artery disease) Current Visit: Yes Status: Chronic Assessment and plan: Stable. No evidence of active ischemia. Cardiology is arranging for left heart catheterization as an outpatient. Qualifiers: Coronary Disease-Associated Artery/Lesion type: [place] artery [place] vs. transplanted heart: [place] heart Associated angina: without angina Qualified Code(s): I25.10 - Atherosclerotic heart disease of [place] coronary artery without angina pectoris - Subjective Interval history: Patient seen and examined at bedside. Patient states that he feels about the same today. He reports that his cough is persistent. He denies production of his cough. He does report some mild dyspnea on exertion that is improved since admission. He denies fever, chills, chest pain. - Constitutional Vitals: Temp Pulse Resp BP Pulse Ox 98.0 F 55 17 143/79 96 02/23/17 11:24 02/23/17 11:24 02/23/17 11:24 02/23/17 11:24 02/23/17 11:24 General appearance: Present: A&O X 3, pleasant, no acute distress, answers questions appropriately Exam: Patient was observed sleeping and had no cough and coughed twice while I was in the room with him over an approximately a 20 minute period of time - Respiratory Respiratory exam: Present: CTAB. Absent: rales, respiratory distress, rhonchi, wheezes, tachypnea - Cardiovascular Cardiovascular exam: Present: RRR, systolic murmur (306). Absent: gallop, rubs , tachycardia - GI/Abdominal GI/Abdominal exam: Present: normal bowel sounds, soft. Absent: distended, tenderness - Extremities Exam Extremities exam: Present: pedal edema (Trace bilaterally), warm. Absent: tenderness - Neurological Exam Neurological exam: Present: alert, CN II-XII intact, oriented X3, no focal deficits Internal Medicine: Result - Labs CBC & Chem 7: 02/23/17 04:47 02/23/17 04:47 Labs: Short CBC 02/23/17 Range/Units 04:47 WBC 10.6 (4.3-11.1) K/mcL Hgb 13.0 (12.9-16.9) g/dL Hct 38.0 (37.5-50.1) % Plt Count 241 (140-400) K/mcL Neutrophils # 3.2 (1.6-8.9) K/mcL BMP 02/23/17 04:47 Sodium 136 Potassium 5.0 H Chloride 103 Carbon Dioxide 22 BUN 40 H Creatinine 1.58 H Glucose 269 H Calcium 9.5 - ABG Interpretation ABG results: PT/INR, D-dimer PT 12.4 Seconds (9.4-12.1) H 02/20/17 00:56 - Impressions Impressions Retroperitoneum Ultrasound 02/22/17 09:00 IMPRESSION: 1. Normal sonographic appearance of the kidneys. No evidence of obstructive uropathy. 2. Prostatomegaly. 3. Mild diffuse thickening of the bladder wall. Please correlate with clinical symptoms of cystitis. Alternatively, this can be due to chronic bladder outlet obstruction. D/ / 02/22/2017 10:28:04 Hany Suero MD / jimi Interpreting Provider: Hany Suero MD - VTE Documentation of Mechanical Device: Graduated compression elastic hosiery Consult Discharge Plan - Plan Referrals: Willow Singer CNP [Primary Care Provider] - 03/07/17 9:00 am () <Theron Phelps - Last Filed: 02/23/17 15:55> Date of Encounter: 02/23/17 - Constitutional Vitals: Temp Pulse Resp BP Pulse Ox 98.0 F 55 17 143/79 96 02/23/17 11:24 02/23/17 11:24 02/23/17 11:24 02/23/17 11:24 02/23/17 11:24 Internal Medicine: Result - Labs CBC & Chem 7: 02/23/17 04:47 02/23/17 04:47 Labs: Short CBC 02/23/17 Range/Units 04:47 WBC 10.6 (4.3-11.1) K/mcL Hgb 13.0 (12.9-16.9) g/dL Hct 38.0 (37.5-50.1) % Plt Count 241 (140-400) K/mcL Neutrophils # 3.2 (1.6-8.9) K/mcL BMP 02/23/17 04:47 Sodium 136 Potassium 5.0 H Chloride 103 Carbon Dioxide 22 BUN 40 H Creatinine 1.58 H Glucose 269 H Calcium 9.5 - ABG Interpretation ABG results: PT/INR, D-dimer PT 12.4 Seconds (9.4-12.1) H 02/20/17 00:56 - Impressions Impressions Retroperitoneum Ultrasound 02/22/17 09:00 IMPRESSION: 1. Normal sonographic appearance of the kidneys. No evidence of obstructive uropathy. 2. Prostatomegaly. 3. Mild diffuse thickening of the bladder wall. Please correlate with clinical symptoms of cystitis. Alternatively, this can be due to chronic bladder outlet obstruction. D/ / 02/22/2017 10:28:04 Hany Suero MD / jimi Interpreting Provider: Hany Suero MD - Attending Attestation I independently saw and examined this patient on 02/23/17, plan of care is as detailed in the resident physician's documentation 76 M who is admitted and being managed for SOB, bronchitis, COPDE, Severe , ADRIANA on CKD No new complains, he continues to complain of cough, he does say the tessalon pearls have helped him have some sputum production Chart review reveals he received 2 days of Lisinopril in this admission, last dose about 3 days ago He is otherwise asymptomatic, he is ambulatory and in no form of distress Physical exam VSS, NAD, Not cyanotic, chest is CTAB, no wheezing on eval, S1, S2 , murmur Labs and Imaging reviewed: Renal USS unremarkable. K 5.0. CBC Unremarkable ADRIANA is improving and cr is almost at baseline Continue current meds, add Robitussin with codeine, start ARB, give kayexalate for elevated potassium, d/c azithromycin-Day 5 Rest of details as in resident physicians documentation
[2017-02-23] MEDS ORDERED: GuaiFENesin/Codeine Oral Soln 5 ML UDC PO PRN (15:37)
[2017-02-23 19:38] LABS: Hemoglobin A1C 8.2 %
[2017-02-23] MEDS ORDERED: Insulin LISPRO 300 UNITS/3 ML VIAL SQ SCH (21:00)
[2017-02-23] MEDS: cefTRIAXone 1,000 MG in Water for inj. (sterile) 10 ML IVP SCH (21:23)
[2017-02-23] MEDS ORDERED: Preparation H Ointment 30 GM TUBE RC PRN (23:04)
[2017-02-23] MEDS: Miconazole 2% cream 118 GM TUBE TP SCH (23:05)
[2017-02-24] MEDS: *HR* Heparin 5,000 UNIT/ML VIAL SQ SCH (05:49)
[2017-02-24] MEDS: *HR* HYDROcodone/Acet 5/325 mg TABLET PO PRN ×2 (05:50→10:52)
[2017-02-24 06:29] LABS: Basophils # 0.1 K/mcL (0.0-0.2); Basophils % 0.5 %; Eosinophils # 0.2 K/mcL (0.0-0.6); Eosinophils % 2.1 %; Hematocrit 38.2 % (37.5-50.1); Hemoglobin 13.1 g/dL (12.9-16.9); Immature Granulocytes % 0.2 % (0-4); Lymphocytes # 6.7 K/mcL (0.6-4.6); Lymphocytes % 59.6 %; Mean Corpuscular HGB Conc 34.3 g/dL (31.6-35.5); Mean Corpuscular Hemoglobin 33.1 pg (28.0-33.3); Mean Corpuscular Volume 96.5 fL (83.0-100.0); Mean Platelet Volume 9.8 fL (9.4-12.4); Monocytes # 0.7 K/mcL (0.0-1.3); Monocytes % 5.8 %; Neutrophils # 3.6 K/mcL (1.6-8.9); Platelet Count 242 K/mcL (140-400); Red Blood Count 3.96 M/mcL (4.19-5.50); Red Cell Distribution Width 12.9 % (11.5-14.5); Segmented Neutrophils % 31.8 %
--- NOTE | 2017-02-24 06:36 | Internal Med Progress Note ---
Date of Encounter: 02/24/17 Time of Encounter: 06:32 - Assessment and plan (1) Bronchitis Current Visit: Yes Status: Acute Assessment and plan: Unchanged per patient report however patient does appear to be coughing less. Patient is currently on Tessalon Perles and Robitussin DM. Patient has a stated codeine allergy but discussing this with him he states that when he took it in the past he took it at higher doses for pain and had some nausea and vomiting with it. Patient denies anaphylactic reaction or hives. Patient is willing to try a dose to see if it helps with his cough. If he tolerates this well change Robitussin-DM to Robitussin w/ codeine. (2) Dyspnea on exertion Current Visit: Yes Status: Acute Assessment and plan: Most likely related to bronchitis As far as cardiac etiology (severe on echo and moderate LV diastolic dysfunction), cardiology thinks most likely bronchitis Wells Score suggests low likelihood of PE Recommend patient comply with his BiPAP (3) Gujhp-aw-nyqzpko kidney injury Current Visit: Yes Status: Resolved Assessment and plan: Acute kidney injury is resolved, creatinine is back to baseline, 1.58. Patient is having good urine output. Patient does have mild hyperkalemia (5.0) yesterday. No EKG changes, given Kayexalate 15 g one time yesterday Qualifiers: Acute renal failure type: unspecified Chronic kidney disease stage: stage 3 (moderate) Qualified Code(s): N17.9 - Acute kidney failure, unspecified; N18.3 - Chronic kidney disease, stage 3 (moderate); N18.3 - Chronic kidney disease, stage 3 (moderate) (4) Stage 3 chronic kidney disease Current Visit: Yes Status: Chronic Assessment and plan: Appreciate nephrology recommendations AK I resolved and patient is back to baseline Follows with Dr. Ahumada, recommend he follow up with their office upon discharge (5) Severe aortic stenosis Current Visit: Yes Status: Acute Assessment and plan: Unlikely contributing to patient's shortness of breath. No angina or syncope. Patient seen by cardiology and per echocardiogram has aortic stenosis has advanced severe . Cardiology is recommending close outpatient follow-up for left heart cath and possible referral for valve replacement. We will arrange close outpatient follow-up. (6) Hypertension Current Visit: Yes Status: Acute Assessment and plan: Blood pressure remained stable. Continue current regimen. Qualifiers: Hypertension type: unspecified Qualified Code(s): I10 - Essential (primary ) hypertension (7) CAD (coronary artery disease) Current Visit: Yes Status: Chronic Assessment and plan: Stable. No evidence of active ischemia. Cardiology is arranging for left heart catheterization as an outpatient. Qualifiers: Coronary Disease-Associated Artery/Lesion type: [place] artery [place] vs. transplanted heart: [place] heart Associated angina: without angina Qualified Code(s): I25.10 - Atherosclerotic heart disease of [place] coronary artery without angina pectoris (8) Cardiac enzymes elevated Current Visit: Yes Status: Acute Assessment and plan: Likely due to CKD and demand ischemia No chest pain (9) Diabetes mellitus Current Visit: Yes Status: Acute Assessment and plan: Hgb A1c = 8.2% which correlates with a mean plasma glucose of 189 Blood glucose has been higher than his baseline, Levemir increased to 10 units BID Patient receiving prandial insulin Continue diabetic diet Qualifiers: Diabetes mellitus type: type 2 Diabetes mellitus complication status: with unspecified complications Diabetes mellitus retirement insulin use: unspecified retirement insulin use status Qualified Code(s): E11.8 - Type 2 diabetes mellitus with unspecified complications (10) Hyperlipidemia Current Visit: Yes Status: Acute Assessment and plan: On Tricor. Has documented allergy to statins. Qualifiers: Hyperlipidemia type: mixed hyperlipidemia Qualified Code(s): E78.2 - Mixed hyperlipidemia - Subjective Interval history: 76-year-old male with h/o COPD presented to ED 02/19/17 with worsening cough and congestion. CXR showed slightly increased interstitial opacities left ( lower lobe) > right. WBCs = 14.0, troponin 0.05, Cr =1.54, lactic acid = 2.7. Admitted for likely COPD exacerbation with demand ischemia and possible ADRIANA - Constitutional Vitals: Temp Pulse Resp BP Pulse Ox 97.5 F L 60 18 126/76 95 02/24/17 04:55 02/24/17 04:55 02/24/17 04:55 02/24/17 04:55 02/24/17 04:55 General appearance: Present: A&O X 3, pleasant, no acute distress, answers questions appropriately Internal Medicine: Result - Labs CBC & Chem 7: 02/23/17 04:47 02/23/17 04:47 - ABG Interpretation ABG results: PT/INR, D-dimer PT 12.4 Seconds (9.4-12.1) H 02/20/17 00:56 - VTE Documentation of Mechanical Device: Graduated compression elastic hosiery Consult Discharge Plan - Plan Referrals: Willow Singer CNP [Primary Care Provider] - 03/07/17 9:00 am ()
[2017-02-24 06:48] LABS: Calcium 9.2 mg/dL (8.6-10.8); Potassium 4.8 mEq/L (3.5-4.5)
[2017-02-24] MEDS: Aspirin 81 MG TAB.CHEW PO SCH (08:31)
[2017-02-24] MEDS: Loratadine 10 MG TABLET PO SCH (08:31)
[2017-02-24] MEDS: Fenofibrate 54 MG TABLET PO SCH (08:31)
[2017-02-24] MEDS: hydroCHLOROthiazide 25 MG TABLET PO SCH (08:31)
[2017-02-24] MEDS: Insulin LISPRO 300 UNITS/3 ML VIAL SQ SCH ×4 (08:32→12:31)
[2017-02-24] MEDS: Insulin DETEMIR 100 UNIT/ML X5UNITS SQ SCH (08:32)
[2017-02-24] MEDS: Miconazole 2% cream 118 GM TUBE TP SCH (08:45)
[2017-02-24 11:08] VITALS: BP 124/70
--- NOTE | 2017-02-24 11:16 | Discharge Summary ---
<Kevin De Leon - Last Filed: 02/24/17 11:03> Date of Encounter: 02/24/17 Time of Encounter: 11:04 - Discharge Diagnosis (1) Bronchitis Priority: Primary Status: Acute (2) Dyspnea on exertion Priority: Primary Status: Acute (3) Dgeel-aq-wmknkxx kidney injury Priority: Primary Status: Resolved Qualifiers: Acute renal failure type: unspecified Chronic kidney disease stage: stage 3 (moderate) Qualified Code(s): N17.9 - Acute kidney failure, unspecified; N18.3 - Chronic kidney disease, stage 3 (moderate); N18.3 - Chronic kidney disease, stage 3 (moderate) (4) Stage 3 chronic kidney disease Priority: Secondary Status: Chronic (5) Severe aortic stenosis Priority: Secondary Status: Acute (6) Hypertension Priority: Secondary Status: Acute Qualifiers: Hypertension type: unspecified Qualified Code(s): I10 - Essential (primary ) hypertension (7) CAD (coronary artery disease) Priority: Secondary Status: Chronic Qualifiers: Coronary Disease-Associated Artery/Lesion type: [place] artery [place] vs. transplanted heart: [place] heart Associated angina: without angina Qualified Code(s): I25.10 - Atherosclerotic heart disease of [place] coronary artery without angina pectoris (8) Cardiac enzymes elevated Priority: Secondary Status: Acute (9) Diabetes mellitus Priority: Secondary Status: Acute Qualifiers: Diabetes mellitus type: type 2 Diabetes mellitus complication status: with unspecified complications Diabetes mellitus fci insulin use: unspecified fci insulin use status Qualified Code(s): E11.8 - Type 2 diabetes mellitus with unspecified complications (10) Hyperlipidemia Priority: Secondary Status: Acute Qualifiers: Hyperlipidemia type: mixed hyperlipidemia Qualified Code(s): E78.2 - Mixed hyperlipidemia - Discharge Medications Prescriptions: GuaiFENesin/Codeine [ROBITUSSIN w/CODEINE] 5 ml PO Q6HR PRN #120 ml PRN Reason: Cough Benzonatate [Tessalon] 200 mg PO TID PRN #30 capsule PRN Reason: Cough Cefdinir [Omnicef] 300 mg PO DAILY #1 capsule Losartan Potassium [Cozaar] 50 mg PO DAILY #30 tab predniSONE [PredniSONE] 40 mg PO DAILY #10 tablet Home Medications: Acitretin [Soriatane] 25 mg PO DAILY 09/08/16 [History] Aspirin 81 mg PO DAILY 09/08/16 [History] Betamethasone/Propylene Glyc [Betamethasone Dp Aug 0.05% Lot] 1 appl TP DAILY [History] Clopidogrel [Plavix] 75 mg PO DAILY 09/08/16 [History] Donepezil HCl [Aricept] 10 mg PO DAILY 09/08/16 [History] Fenofibrate Nanocrystallized [Tricor] 145 mg PO DAILY 09/08/16 [History] Insulin Regular U-500 [HumuLIN R U-500] 80 mm SQ TID 09/08/16 [History] Loratadine [Claritin] 10 mg PO DAILY 09/08/16 [History] Metoprolol [Lopressor] 50 mg PO BID 09/08/16 [History] Mometasone Furoate [Nasonex] 17 gm NS BID 09/08/16 [History] Tamsulosin [Flomax] 0.4 mg PO BID 09/08/16 [History] hydroCHLOROthiazide [Hydrochlorothiazide] 25 mg PO DAILY 09/08/16 [History] Multivitamin [Multivitamins] 1 tab PO DAILY 01/19/17 [History] Furosemide [Lasix] 40 mg PO DAILY 02/19/17 [History] HYDROcodone/Acet 5/325 mg [[place] 5-325 mg] 1 tab PO BID PRN 02/19/17 [History] Levothyroxine Sodium [Levoxyl] 200 mcg PO DAILY 02/19/17 [History] Meclizine HCl [Verticalm] 25 mg PO DAILY PRN 02/19/17 [History] Montelukast [Singulair] 10 mg PO DAILY 02/19/17 [History] Benzonatate [Tessalon] 200 mg PO TID PRN #30 capsule 02/24/17 [Rx] Cefdinir [Omnicef] 300 mg PO DAILY #1 capsule 02/24/17 [Rx] GuaiFENesin/Codeine [ROBITUSSIN w/CODEINE] 5 ml PO Q6HR PRN #120 ml 02/24/17 [Rx ] Losartan Potassium [Cozaar] 50 mg PO DAILY #30 tab 02/24/17 [Rx] predniSONE [PredniSONE] 40 mg PO DAILY #10 tablet 02/24/17 [Rx] Allergies/Adverse Reactions: 3 Allergy/AdvReac Type Severity Reaction Status Date / Time Ikjjqjx-Xqb-Iuv Reductase AdvReac Muscle Pain Verified 02/19/17 07:29 Inhibitor [Statins] Procedures/tests Complete & Pending: Procedures Performed prior 72 hours Category Date Time Status US retroperitoneal comp [US] Routine Exams 02/22/17 09:00 Completed Date of admission: 02/19/17 12:20 Primary care physician: Willow Singer CNP Consults: 02/21/17 09:09 Consult to Nephrology [CONS] Routine Consulting Provider: Kidney Alicia/SUSAN/RONNY/GABRIELA Reason for Consult: Acute kidney injury on chronic kidney disease Call Completed: Yes 02/23/17 10:43 Consult to Wound Care [CONS] Routine Reason for Consult: Pt has outpatient appointment with Dr Frank today 2016 at 11:00am, wound clinic contacted and advised to consult Abby Askew to see the patient. Call Completed: No Discharging clinician: Theron Phelps Anticipated date of discharge: 02/24/17 - Patient Status Disposition: Home Health Service Condition: Fair Overall status at discharge: patient is progressing back to baseline - Discharge Instructions Follow Up With: Willow Singer CNP [Primary Care Provider] - 03/07/17 9:00 am () - Diet and Activity Activity: increase activity as tolerated Diet: diabetic diet Hospital course: Mr. Garrido is a 76 year old male with h/o COPD presented to ED 02/19/17 with worsening cough and congestion. CXR showed slightly increased interstitial opacities left (lower lobe) > right. WBCs = 14.0, troponin 0.05, Cr =1.54, lactic acid = 2.7. Will score suggested low likelihood of PE. Admitted for likely COPD exacerbation with demand ischemia and possible ADRIANA. His most concerning symptom throughout the hospital stay was really coughing fits and we think this was most likely due to bronchitis. His coughing improved throughout his hospital stay. When I evaluated the patient on day of discharge he did not cough throughout the entire encounter. During his hospitalization he had acute kidney injury but creatinine returned back to baseline of 1.58 upon discharge and he was maintaining good urine output. He also had some mild hyperkalemia which also improved with Kayexalate. He will follow up with nephrology as an outpatient. His severe aortic stenosis was also considered as a potential contributor factor to his shortness of breath however cardiology evaluated the patient during his hospitalization and think this is unlikely. Troponins likely elevated due to CKD and demand ischemia. Cardiology will arrange left heart catheterization as outpatient. Patient's A1c is 8.2% which correlates to a mean plasma glucose around 189 however his blood sugars were hanging out closer to 250 during his hospitalization so we increased his Levemir to 15 units every morning and 10 units daily at bedtime in addition to prandial insulin. We recommend he continue diabetic diet We recommend that patient comply with his BiPAP - Time Spent with Patient Total time spent providing and/or coordinating discharge services: Greater than 30 minutes - Constitutional Vitals: Temp Pulse Resp BP Pulse Ox 98.1 F 51 20 120/73 96 02/24/17 07:49 02/24/17 07:49 02/24/17 07:49 02/24/17 07:49 02/24/17 08:45 General appearance: Present: A&O X 3, pleasant, no acute distress, answers questions appropriately - Respiratory Respiratory exam: Present: wheezes (diffuse, improved relative to recent examinations). Absent: accessory muscle use, rales, rhonchi - Cardiovascular Cardiovascular exam: Present: RRR, systolic murmur. Absent: gallop, rubs, tachycardia - GI/Abdominal GI/Abdominal exam: Present: normal bowel sounds, soft, no peritoneal signs. Absent: distended, tenderness - Extremities Exam Extremities exam: Present: pedal edema (trace bilateral), warm. Absent: calf tenderness - Neurological Exam Neurological exam: Present: alert, oriented X3, no focal deficits - VTE Documentation of Mechanical Device: Graduated compression elastic hosiery <Theron Phelps T - Last Filed: 02/24/17 12:52> Date of Encounter: 02/24/17 Procedures/tests Complete & Pending: Procedures Performed prior 72 hours Category Date Time Status US retroperitoneal comp [US] Routine Exams 02/22/17 09:00 Completed Date of admission: 02/19/17 12:20 Primary care physician: Willow Singer CNP Consults: 02/21/17 09:09 Consult to Nephrology [CONS] Routine Consulting Provider: Kidney Alicia/SUSAN/RONNY/GABRIELA Reason for Consult: Acute kidney injury on chronic kidney disease Call Completed: Yes 02/23/17 10:43 Consult to Wound Care [CONS] Routine Reason for Consult: Pt has outpatient appointment with Dr Zac deshpande 2016 at 11:00am, wound clinic contacted and advised to consult Abby Askew to see the patient. Call Completed: No Hospital course: Mr. Garrido is a 76 year old male - Time Spent with Patient Total time spent providing and/or coordinating discharge services: Greater than 30 minutes (40 mins) - Constitutional Vitals: Temp Pulse Resp BP Pulse Ox 98.1 F 58 18 124/70 95 02/24/17 11:04 02/24/17 11:04 02/24/17 11:04 02/24/17 11:04 02/24/17 11:04 - Attending Attestation I independently saw and examined this patient on 02/24/17, plan of care is as detailed in the resident physician's documentation 76 M who was admitted and being managed for SOB, bronchitis, COPDE, Severe , ADRIANA on CKD Patient was seen at bedside this morning during breakfast He is asymptomatic, he is ambulatory and in no form of distress, he has no O2 requirements His renal function is at his baseline When informed about plans for discharge, patient states "I live alone and I am 100% opposed to being discharged home because I am still coughing". he was educated about his investigations and lab work during this admission and that his cough will continue to improve as it has been doing at home. There is no medical reason to keep him admitted in the hospital. He is very resistant to going home because he lives alone. He declines referral to ECF. he is ambulatory and stable I consulted with and discussed with Engine Specialist Bebe(see her documentation for details), patient has home health and his hours can be increased since he is recently discharged from the hospital Physical exam VSS, NAD, Not cyanotic, chest is CTAB, no wheezing on eval, S1, S2 , murmur Labs and Imaging reviewed: Renal USS unremarkable. K 4.8. Cr continues to improve. CBC Unremarkable Patient is medically cleared to be discharged home with services, resume home meds, he has received 5 days of zithromax and 6 days of ceftriaxone IV, his cultures are negative. Complete course of steroids at home Follow up with PCP Rest of details as in resident physician's documentation
[2017-02-24] MEDS ORDERED: Insulin DETEMIR 100 UNIT/ML X5UNITS SQ SCH (21:00)
[2017-02-25] MEDS ORDERED: Insulin DETEMIR 100 UNIT/ML X5UNITS SQ SCH (09:00)
== END 2017-02-24 14:40 | disposition home health service (06) | DRG 145 ==
LOC: EMEROO 07:24 → 2ANU 07:24 → SUATTDRO 12:20 → 2ANU 02-23 14:44
PROVIDERS: ADMIT Internal Medicine; ATTEND Internal Medicine